=== PATIENT | female | born 1950 | race Caucasian/White ===

== ENCOUNTER 2019-03-02 09:38 | Outpatient (CLI) | payer MEDICARE, SELFPAY ==
--- NOTE | 2019-03-02 09:47 | USCV_ITS ---
Emilio Linette Age: 68 Gender: F : 1950 Exam Date: 03/02/2019 10:15 Ordering Phys: Maikel Yancey MD Technologist: YUMIKO BUSTAMANTE Exam Location: [facility] [place] Indication: PERIPHERAL EDEMA BP: 157 / 101 HR: 75 Rhythm: Sinus Technical Quality: Suboptimal MEASUREMENTS (Male / Female) Normal Values 2D ECHO LV Diastolic Diameter PLAX 3.5 cm 4.2 - 5.9 / 3.9 - 5.3 cm LV Systolic Diameter PLAX 2.3 cm IVS Diastolic Thickness 1.4 cm 0.6 - 1.0 / 0.6 - 0.9 cm IVS Systolic Thickness 1.8 cm LVPW Diastolic Thickness 1.2 cm 0.6 - 1.0 / 0.6 - 0.9 cm LVPW Systolic Thickness 1.6 cm LVOT Diameter 2.0 cm LV Ejection Fraction 2D Teich 65.2 % LV Ejection Fraction MOD 2C 81.6 % LV Ejection Fraction 2C AL 81.5 % LA Diameter 2.9 cm LA Width 3.4 cm LA Height 5.3 cm RA Width 2.9 cm RA Height 4.6 cm Aorta at Sinotubular Diameter 2.7 cm M-MODE LV Diastolic Diameter MM 4.4 cm 4.2 - 5.9 / 3.9 - 5.3 cm LV Systolic Diameter MM 2.4 cm LV Ejection Fraction MM Teich 78.1 % IVS Diastolic Thickness MM 1.0 cm 0.6 - 1.0 / 0.6 - 0.9 cm IVS Systolic Thickness MM 1.4 cm LVPW Diastolic Thickness MM 1.1 cm 0.6 - 1.0 / 0.6 - 0.9 cm LVPW Systolic Thickness MM 1.5 cm Aortic Annulus Diameter 2.7 cm LA Ao Ratio MM 1.1 MV E Point Septal Separation 0.2 cm DOPPLER AV Peak Velocity 147.0 cm/s LVOT Peak Velocity 85.0 cm/s AV Area Cont Eq vti 2.1 cm squared AV Area Cont Eq pk 1.9 cm squared MV Area PHT 2.9 cm squared Mitral E to A Ratio 0.7 MV E' Velocity 9.0 cm/s Mitral E to MV E' Ratio 11.3 Mitral E to LV E' Lateral Ratio 10.8 Mitral E to LV E' Septal Ratio 12.0 TR Peak Velocity 258.5 cm/s TR Peak Gradient 26.7 mmHg TR Mean Velocity 211.5 cm/s TR Mean Gradient 18.3 mmHg TR Velocity Time Integral 74.0 cm TV Peak E Velocity 47.0 cm/s Right Atrial Pressure 3.0 mmHg Pulmonary Artery Systolic Pressu 29.7 mmHg PV Peak Velocity 77.0 cm/s RV Acceleration Time 0.1 s RV Ejection Time 0.3 s RV AcT/ET 0.3 FINDINGS Left Ventricle Normal left ventricular size, systolic function and wall thickness, with no regional wall motion abnormalities. Grade I/IV diastolic dysfunction (abnormal relaxation filling pattern), normal to mildly elevated filling pressures. Left ventricular ejection fraction is estimated at 65 %. Right Ventricle Normal right ventricular size and systolic function. Normal right ventricular systolic pressure. Right Atrium The right atrium is normal in size. Left Atrium Mildly increased left atrial size. Mitral Valve Structurally normal mitral valve. Mild mitral annular calcification. Trace mitral valve regurgitation. No mitral valve stenosis. Aortic Valve Structurally normal aortic valve without significant sclerosis or stenosis. There is no aortic regurgitation. Tricuspid Valve Structurally normal tricuspid valve. Trace to mild tricuspid valve regurgitation. Pulmonic Valve Pulmonic valve not well visualized. Pericardium Normal pericardium without effusion. Aorta Normal ascending aorta dimension. CONCLUSIONS Normal left ventricular size, systolic function and wall thickness, with no regional wall motion abnormalities. Grade I/IV diastolic dysfunction (abnormal relaxation filling pattern), normal to mildly elevated filling pressures. Left ventricular ejection fraction is estimated at 65 %. Mildly increased left atrial size. Structurally normal mitral valve. Mild mitral annular calcification. Trace mitral valve regurgitation. No mitral valve stenosis. No change from 01/12/2018 Dr. Cesar Alvares MD (Electronically Signed) Final Date: 02 March 2019 17:06 S
== END 2019-03-02 09:39 | disposition home or self-care (01) ==
LOC: RAD 09:42
PROVIDERS: Family Provider Family Medicine; PCP Family Medicine; Visit Provider Family Medicine
DX: I08.1 Rheumatic disorders of both mitral and tricuspid valves (principal); R60.9 Edema, unspecified
CPT/HCPCS: 93306

== ENCOUNTER → 2019-04-13 09:02 | Outpatient (BNVA) | payer MEDICARE, SELFPAY | PROVIDERS: Family Provider Family Medicine; PCP Family Medicine; Visit Provider Nurse Practitioner Family | DX: N18.3 Chronic kidney disease, stage 3 (moderate) (principal) | CPT/HCPCS: 80069; 82044; 82306; 82310; 83970; 85025 ==

== ENCOUNTER 2020-01-27 09:03 | Outpatient (CLI) | payer MEDICARE, SELFPAY ==
--- NOTE | 2020-01-27 09:07 | MM_ITS ---
WS: [id number] Bilateral screening digital mammogram, 01/27/2020 Clinical Data: SCREENING Comparison: 01/24/2019, 01/21/2018, 01/20/2017, 01/18/2016, 01/16/2015, 01/11/2014, 01/10/2013, 12/11/2011 , 11/20/2010, 11/16/2009, 11/06/2008, 11/03/2007, 10/27/2006. Findings: The breast parenchymal pattern shows fat replacement. No spiculated masses or clustered calcification s are seen. There are no secondary signs of carcinoma. There is a mole marker on the right breast. MM/[id number] Impression: 1. Negative bilateral mammogram unchanged. 2. Recommend annual screening mammograms. BIRADS: 1-Negative FOLLOW UP: 1 Year Follow-up The CAD food checkers and cashiers supervisor was used.
== END 2020-01-27 09:04 | disposition home or self-care (01) ==
LOC: RADSHAW 09:05
PROVIDERS: PCP Family Medicine; Visit Provider Family Medicine
DX: Z12.31 Encounter for screening mammogram for malignant neoplasm of breast (principal)
CPT/HCPCS: 77067

== ENCOUNTER → 2020-04-19 09:47 | Outpatient (BNVA) | payer MEDICARE, SELFPAY | PROVIDERS: PCP Family Medicine; Visit Provider Internal Medicine Nephrology | DX: N18.30 Chronic kidney disease, stage 3 unspecified (principal) | CPT/HCPCS: 80069; 82043; 82310; 83970; 85025 ==

== ENCOUNTER 2020-09-19 09:31 | Outpatient (CLI) | payer MEDICARE, SELFPAY ==
[2020-09-19 09:56] VITALS: BP 126/77; PULSE 97; RESP 18; TEMP 36.8; O2SAT 92
[2020-09-19 10:34] VITALS: BP 96/60; PULSE 91; RESP 18; O2SAT 92
[2020-09-19 11:24] VITALS: BP 105/67; PULSE 87; RESP 18; TEMP 36.7; O2SAT 92
== END 2020-09-19 09:32 | disposition home or self-care (01) ==
LOC: OPS 09:34
PROVIDERS: PCP Family Medicine; Visit Provider Nurse Practitioner
DX: U07.1 COVID-19 (principal)
CPT/HCPCS: 96365

== ENCOUNTER 2020-09-24 12:07 | Inpatient (IN) | payer MEDICARE, SELFPAY ==
[2020-09-24] VITALS (8 sets, daily range): BP systolic 134–144; BP diastolic 82–85; PULSE 73–99; RESP 20–30; TEMP 36.7–36.9; O2SAT 88–94; BMI 23.9
--- NOTE | 2020-09-24 12:09 | W.ED.SOB ---
HPI - SOB/Dyspnea General: Chief Complaint: COVID symptoms Stated Complaint: COVID, DIFF BREATHING Time Seen by Provider: 09/24/20 12:08 History of Present Illness: HPI Narrative: Ms. Jhaveri is a 70-year-old lady with significant past medical history of hypertension, hyperlipidemia, diabetes who presents emergency department due to respiratory distress. The patient is known Covid positive with symptom onset approximately 2 weeks ago. 1 week ago she tested positive for Covid and subsequently received the monoclonal antibody therapy. Despite this her symptoms have persisted. She feels short of breath and generalized fatigue, she has had associated poor p.o. intake. Overall the course of symptoms has worsened. The intensity is moderate to severe. Upon initial EMS arrival she was noted to have oxygen saturations in the high 70s% with some improvement with supplemental oxygen and a nebulized albuterol treatment. The patient is not vaccinated for Covid and does have sick contacts. No other specific exacerbating relieving factors identified. Review of Systems General: Reports: 10 or more systems reviewed and unremarkable except in HPI and below Narrative: CONSTITUTIONAL: denies fever, positive for fatigue, weakness EYES - denies pain, denies loss of vision EARS - denies ear issues. NOSE - denies congestion or rhinorrhea. THROAT - denies sore throat or difficulty swallowing. CARDIOVASCULAR - denies chest pain and palpitations RESPIRATORY -positive for shortness of breath and cough GASTROINTESTINAL - denies abdominal pain, no nausea vomiting, loose stools. GENITOURINARY - denies dysuria or urinary frequency MUSCULOSKELETAL- denies deformity or pain SKIN - denies rashes or new changed skin lesions NEUROLOGIC - denies focal weakness or sensory changes HEMATOLOGIC/LYMPHATIC - denies easy bruising or lymphadenopathy. [facility] ED PFSH: Medical History Endometrial adenocarcinoma HLD (hyperlipidemia) Stage 3 chronic kidney disease Type 2 diabetes mellitus Well woman exam with routine gynecological exam Surgical History H/O section 1975, 1978 H/O lumpectomy 1994 2000 H/O: hysterectomy 08/27/17 due to cancer S/P cholecystectomy 1981 S/P tubal ligation 1978 Family History Mother Diabetes Hypertension Father Diabetes Heart block Hypertension Brother Diabetes Denies family history of Clotting disorder Anesthesia complication Bleeding disorder Stroke Social History Smoking and tobacco status: never smoked Alcohol intake: never Physical Exam Narrative: EXAM NARRATIVE: GENERAL/CONSTITUTIONAL - moderately ill-appearing. No acute distress. Eyes - PERRL, no conjunctival injection ENMT - Atraumatic external nose and ears. Dry mucous membranes NECK - supple. trachea midline CARDIOVASCULAR - regular rate and rhythm. Peripheral pulses 2+ and equal RESPIRATORY -mildly coarse breath sounds on the right, tachypnea present.. No retractions or accessory muscle use. ABDOMEN/GI - Nontender/Nondistended. No tenderness to percussion or evidence of peritonitis MSK - Extremities without obvious deformity or tenderness to palpation SKIN - Warm, Dry NEURO - alert and appropriately oriented. strength and sensation intact. Moves all extremities equally. PSYCH - Appropriate mood and affect Course ED course: - Patient was seen and evaluated by me at bedside - Patient placed on cardiac monitors, IV access obtained - Initial evaluation notable for somewhat ill appearance, no acute distress. Increased respiratory effort requiring supplemental oxygen. - Labs and imaging obtained and reviewed - Labs notable for no significant hematologic panel abnormality. ABG notable for compensated pH of 7.43 with PCO2 of 27.9 and PO2 of 55.3 despite being on supplemental oxygen. Metabolic panel consistent with dehydration, hyperkalemia is new to this patient. There are no significant T wave abnormalities or peaking noted on EKG however given that elevation of potassium shifting was ordered. - Imaging notable for bilateral opacities consistent with viral pneumonia. - Upon serial reexamination after treatment the patient was mildly improved with symptomatic cares though patient still remains ill - Based on patient history, evaluation, labs, and imaging as interpreted the most likely cause of the patient's condition is Covid pneumonia with associated hypoxemia, hyperkalemia, and metabolic derangements - The results of ED evaluation were discussed with the patient including plan for admission due to requirement for level of care not available if discharged to prevent significant worsening/deterioration. -Hospitalist service consulted and agreed to admit the patient. - Patient was admitted without further deterioration or significant events. Vital Signs: Vital signs: Vital Signs Temperature 98.3 F 09/26/20 11:54 Pulse Rate 76 09/26/20 11:54 Respiratory Rate 19 H 09/26/20 11:54 Blood Pressure 132/66 09/26/20 11:54 Pulse Oximetry 95 09/26/20 11:54 MDM - SOB/Dyspnea Medical Records: Attestation: I reviewed the patient's medical records. Lab Data: Attestation: I reviewed the patient's lab results. Labs: Lab Results 09/24/20 09/24/20 09/24/20 Range/Units 12:36 12:46 12:46 WBC 7.2 (4.0-10.0) 10^3/ uL RBC 4.39 (4.1-5.3) 10^6/u L Hgb 12.9 (11.5-15.3) g/dL Hct 38.7 (37.0-47.0) % MCV 88.2 (81-99) fl MCH 29.4 (28.0-34.0) pg MCHC 33.3 (30.0-36.0) g/dL RDW 13.1 (12.1-15.1) % Plt Count 283 (130-400) 10^3/c mm MPV 10.1 (7.4-10.4) fL Neut % (Auto) 76.0 % Lymph % (Auto) 11.0 % Banks % (Auto) 7.7 % Eos % (Auto) 0.4 % Baso % (Auto) 0.3 % Neut # (Auto) 5.45 (1.8-7.7) 10^3/u L Lymph # (Auto) 0.8 (0.8-4.8) 10^3/u L Banks # (Auto) 0.6 (0.2-0.9) 10^3/u L Eos # (Auto) 0.0 (0.0-0.8) 10^3/u L Baso # (Auto) 0.0 (0.0-0.1) 10^3/u L Nucleated RBC % (a uto) 0 % Nucleated RBCs # 0.0 /100WBC Specimen Type Sample Site ABG pH (7.35-7.45) ABG pCO2 (35-45) mmHg ABG pO2 (80.0-100.0) mmH g ABG HCO3 (22-26) mmol/L ABG O2 Saturation ABG Base Excess (-2.0-2.0) mmol/ L Mega Test A-a O2 Gradient (5-10) mmHg Hematocrit (37-47) % Hgb O2 Saturation (95-100) % Carboxyhemoglobin (0.4-20.1) %THgb Methemoglobin (0.4-1.5) % Total Hemoglobin (12-16) g/dL Ionized Calcium (1.1-1.4) mmol/L O2 Delivery Device O2 Liters/Min % FiO2 % Manufacturing Machine Operator ID Sodium 130 L (136-145) mmol/L Potassium 6.1 H (3.5-5.1) mmol/L Chloride 95 L (98-107) mmol/L Carbon Dioxide 21 L (22-29) mmol/L Anion Gap 20.1 H (5-19) BUN 39 H (8-23) mg/dL Creatinine 1.5 H (0.5-0.9) mg/dL GFR Calculation Not Reportable Glucose 121 H (65-115) mg/dL POC Glucose 117 H (70-110) mg/dL Calculated Osmolal ity 281 L (285-295) mOsm/k g Lactate (0.5-2.2) mmol/L Calcium 8.9 (8.5-10.5) mg/dL Total Bilirubin 0.6 (0.15-1.2) mg/dL AST 44 H (0-32) U/L ALT 44 H (0-33) U/L Alkaline Phosphata se 93 (35-105) IU/L Troponin T Baselin e (0-10) ng/L Troponin T 120 Min catarina (0-10) ng/L Delta Troponin T (0-10) ABS# C-Reactive Protein 174.8 H (0.0-4.9) mg/L Total Protein 6.8 (6.6-8.7) g/dL Albumin 3.5 (3.5-5.2) g/dL Globulin 3.3 (1.3-4.6) g/dL Procalcitonin 0.30 (0-0.5) ng/mL Urine Color (Yellow) Urine Appearance (CLEAR) Urine pH (5-7) Ur Specific Gravit y (1.005-1.030) Urine Protein (Negative) Urine Glucose (UA) (Normal) Urine Ketones (Negative) Urine Blood (Negative) Urine Nitrate (Negative) Urine Bilirubin (Negative) Urine Urobilinogen (Negative) mg/dL Ur Leukocyte Fouzia ase (Negative) 09/24/20 09/24/20 09/24/20 Range/Units 12:46 12:46 12:47 WBC (4.0-10.0) 10^3/ uL RBC (4.1-5.3) 10^6/u L Hgb (11.5-15.3) g/dL Hct (37.0-47.0) % MCV (81-99) fl MCH (28.0-34.0) pg MCHC (30.0-36.0) g/dL RDW (12.1-15.1) % Plt Count (130-400) 10^3/c mm MPV (7.4-10.4) fL Neut % (Auto) % Lymph % (Auto) % Banks % (Auto) % Eos % (Auto) % Baso % (Auto) % Neut # (Auto) (1.8-7.7) 10^3/u L Lymph # (Auto) (0.8-4.8) 10^3/u L Banks # (Auto) (0.2-0.9) 10^3/u L Eos # (Auto) (0.0-0.8) 10^3/u L Baso # (Auto) (0.0-0.1) 10^3/u L Nucleated RBC % (a uto) % Nucleated RBCs # /100WBC Specimen Type Sample Site ABG pH (7.35-7.45) ABG pCO2 (35-45) mmHg ABG pO2 (80.0-100.0) mmH g ABG HCO3 (22-26) mmol/L ABG O2 Saturation ABG Base Excess (-2.0-2.0) mmol/ L Mega Test A-a O2 Gradient (5-10) mmHg Hematocrit (37-47) % Hgb O2 Saturation (95-100) % Carboxyhemoglobin (0.4-20.1) %THgb Methemoglobin (0.4-1.5) % Total Hemoglobin (12-16) g/dL Ionized Calcium (1.1-1.4) mmol/L O2 Delivery Device O2 Liters/Min % FiO2 % Manufacturing Machine Operator ID Sodium (136-145) mmol/L Potassium (3.5-5.1) mmol/L Chloride (98-107) mmol/L Carbon Dioxide (22-29) mmol/L Anion Gap (5-19) BUN (8-23) mg/dL Creatinine (0.5-0.9) mg/dL GFR Calculation Glucose (65-115) mg/dL POC Glucose (70-110) mg/dL Calculated Osmolal ity (285-295) mOsm/k g Lactate 1.8 (0.5-2.2) mmol/L Calcium (8.5-10.5) mg/dL Total Bilirubin (0.15-1.2) mg/dL AST (0-32) U/L ALT (0-33) U/L Alkaline Phosphata se (35-105) IU/L Troponin T Baselin e 16 H (0-10) ng/L Troponin T 120 Min [place]ina (0-10) ng/L Delta Troponin T (0-10) ABS# C-Reactive Protein (0.0-4.9) mg/L Total Protein (6.6-8.7) g/dL Albumin (3.5-5.2) g/dL Globulin (1.3-4.6) g/dL Procalcitonin (0-0.5) ng/mL Urine Color Straw (Yellow) Urine Appearance Clear (CLEAR) Urine pH 5 (5-7) Ur Specific Gravit y 1.005 (1.005-1.030) Urine Protein Neg (Negative) Urine Glucose (UA) Norm (Normal) Urine Ketones Negative (Negative) Urine Blood Neg (Negative) Urine Nitrate Negative (Negative) Urine Bilirubin Neg (Negative) Urine Urobilinogen Norm (Negative) mg/dL Ur Leukocyte Fouzia ase Negative (Negative) 09/24/20 09/24/20 09/24/20 Range/Units 14:21 14:52 14:52 WBC (4.0-10.0) 10^3/ uL RBC (4.1-5.3) 10^6/u L Hgb (11.5-15.3) g/dL Hct (37.0-47.0) % MCV (81-99) fl MCH (28.0-34.0) pg MCHC (30.0-36.0) g/dL RDW (12.1-15.1) % Plt Count (130-400) 10^3/c mm MPV (7.4-10.4) fL Neut % (Auto) % Lymph % (Auto) % Banks % (Auto) % Eos % (Auto) % Baso % (Auto) % Neut # (Auto) (1.8-7.7) 10^3/u L Lymph # (Auto) (0.8-4.8) 10^3/u L Banks # (Auto) (0.2-0.9) 10^3/u L Eos # (Auto) (0.0-0.8) 10^3/u L Baso # (Auto) (0.0-0.1) 10^3/u L Nucleated RBC % (a uto) % Nucleated RBCs # /100WBC Specimen Type Arterial Sample Site Radial, left ABG pH 7.43 (7.35-7.45) ABG pCO2 27.9 L (35-45) mmHg ABG pO2 55.3 L (80.0-100.0) mmH g ABG HCO3 18.7 L (22-26) mmol/L ABG O2 Saturation 89.8 ABG Base Excess -4.5 L (-2.0-2.0) mmol/ L Mega Test Pos A-a O2 Gradient 28.9 H (5-10) mmHg Hematocrit 35.2 L (37-47) % Hgb O2 Saturation 88.0 L (95-100) % Carboxyhemoglobin 1.2 (0.4-20.1) %THgb Methemoglobin 0.9 (0.4-1.5) % Total Hemoglobin 11.5 L (12-16) g/dL Ionized Calcium 1.3 (1.1-1.4) mmol/L O2 Delivery Device Nc O2 Liters/Min 6.0 % FiO2 44.0 % Manufacturing Machine Operator ID Amh Sodium 127.0 L (136-145) mmol/L Potassium 5.0 (3.5-5.1) mmol/L Chloride (98-107) mmol/L Carbon Dioxide (22-29) mmol/L Anion Gap (5-19) BUN (8-23) mg/dL Creatinine (0.5-0.9) mg/dL GFR Calculation Glucose 299.0 H (65-115) mg/dL POC Glucose (70-110) mg/dL Calculated Osmolal ity (285-295) mOsm/k g Lactate (0.5-2.2) mmol/L Calcium (8.5-10.5) mg/dL Total Bilirubin (0.15-1.2) mg/dL AST (0-32) U/L ALT (0-33) U/L Alkaline Phosphata se (35-105) IU/L Troponin T Baselin e (0-10) ng/L Troponin T 120 Min [place] 14.32 H (0-10) ng/L Delta Troponin T -1.68 L (0-10) ABS# C-Reactive Protein (0.0-4.9) mg/L Total Protein (6.6-8.7) g/dL Albumin (3.5-5.2) g/dL Globulin (1.3-4.6) g/dL Procalcitonin 0.26 (0-0.5) ng/mL Urine Color (Yellow) Urine Appearance (CLEAR) Urine pH (5-7) Ur Specific Gravit y (1.005-1.030) Urine Protein (Negative) Urine Glucose (UA) (Normal) Urine Ketones (Negative) Urine Blood (Negative) Urine Nitrate (Negative) Urine Bilirubin (Negative) Urine Urobilinogen (Negative) mg/dL Ur Leukocyte Fouzia ase (Negative) EKG Data^: EKG 1: Attestation: I personally reviewed and interpreted this EKG as follows: EKG Interpretation Date: 09/24/20 EKG interpretation time: 12:45 Prior EKG tracings: not available for review Ischemic changes: non-specific ST-T wave changes Interpretation: Twelve-lead EKG shows regular sinus rhythm at a rate of 97. NV interval 137, QRS duration 89, QTc 393. Left axis deviation. Interpretation: Sinus rhythm. EKG 2: Attestation: I personally reviewed and interpreted this EKG as follows: EKG Interpretation Date: 09/24/20 EKG interpretation time: 14:50 Prior EKG tracings: available for review Interpretation: Twelve-lead EKG shows a regular sinus rhythm at a rate of 79. Normal NV interval 151, QRS duration 76, QTc 373. Interference of unclear etiology in lead V2 though no adjacent leads concerning for ST elevation. Interpretation: Sinus rhythm. Unable to assess lead V2. Discharge Plan Discharge Patient Disposition: Admitted As Inpatient Admit Provider: Joanne Tarango Coding Level of Care Code ED Communications Attendant for Toshia Lua
--- NOTE | 2020-09-24 12:22 | XRR_ITS ---
PROCEDURE INFORMATION: Exam: XR Chest Exam date and time: 09/24/2020 12:22 PM Age: 70 years old Clinical indication: Shortness of breath; Patient HX: History--covid +; Short of breath-difficulty breathing; Additional info: SOB TECHNIQUE: Imaging protocol: XR of the chest. Views: 1 view. COMPARISON: CT Chest/Abdomen/Pelvis w IV* 01/11/2018 8:29 PM FINDINGS: Lungs: Bilateral interstitial/airspace disease in the settting of Covid pneumonitis. Pleural spaces: No pleural effusion. Heart/Mediastinum: No cardiomegaly. Bones/joints: Degenerative change. XR/XR chest 1V portable [id number] IMPRESSION: Bilateral interstitial/airspace disease in the settting of Covid pneumonitis.
--- NOTE | 2020-09-24 12:23 | ECG_ITS ---
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 Measurements Intervals [place] Rate: 97 P: 11 NE: 137 QRS: -18 QRSD: 89 T: 73 QT: 309 QTc: 393 Interpretive Statements SINUS RHYTHM Compared to ECG 01/12/2018 01:48:48 T-wave abnormality no longer present Electronically Signed On 09-24-2020 23:58:04 CDT by Anthony Villeda M.D. [email or web address] [email or web address] hospitalJNJ Mobilethe university of toledo medical centerVision [employer] (V3D)/store/OM/[id number]
[2020-09-24] MEDS: acetaminophen 325 mg Tablet 650 MG PO (12:40)
[2020-09-24] MEDS: sodium chloride 0.9% 500 ML IV (12:42)
[2020-09-24 12:54] LABS: Glucose Point of Care 117 mg/dL (70-110)
[2020-09-24 12:56] LABS: Add Urine Microscopic? NO; Charge for UA Resulting for Rev
[2020-09-24 12:58] LABS: Basophils % 0.3 %; Eosinophils % 0.4 %; Hematocrit 38.7 % (37.0-47.0); Hemoglobin 12.9 g/dL (11.5-15.3); Lymphocytes # 0.8 10^3/uL (0.8-4.8); Mean Corpuscular HGB Conc 33.3 g/dL (30.0-36.0); Mean Corpuscular Hemoglobin 29.4 pg (28.0-34.0); Mean Corpuscular Volume 88.2 fl (81-99); Mean Platelet Volume 10.1 fL (7.4-10.4); Monocytes # 0.6 10^3/uL (0.2-0.9); Monocytes % 7.7 %; Neutrophils # 5.45 10^3/uL (1.8-7.7); Nucleated Red Blood Cells % 0 %; Platelet Count 283 10^3/cmm (130-400); Red Blood Count 4.39 10^6/uL (4.1-5.3); Red Cell Distribution Width 13.1 % (12.1-15.1); White Blood Count 7.2 10^3/uL (4.0-10.0)
[2020-09-24 13:02] LABS: Bilirubin Urine Neg (Negative); Blood Urine Neg (Negative); Glucose Urine UA Norm (Normal); Ketones Urine Negative (Negative); Leukocyte Esterase Urine Negative (Negative); Nitrate Urine Negative (Negative); Protein Urine Neg (Negative); Specific Gravity, Urine 1.005 (1.005-1.030); Urine Appearance Clear (CLEAR); Urine Color Straw (Yellow); Urobilinogen Urine Norm (Negative); pH Urine 5 (5-7)
[2020-09-24 13:17] LABS: Alanine Aminotransferase 44 U/L (0-33); Albumin Level 3.5 g/dL (3.5-5.2); Alkaline Phosphatase 93 IU/L (35-105); Anion Gap 20.1 (5-19); Aspartate Amino Transferase 44 U/L (0-32); Blood Urea Nitrogen 39 mg/dL (8-23); C Reactive Protein 174.8 mg/L (0.0-4.9); Calcium 8.9 mg/dL (8.5-10.5); Carbon Dioxide 21 mmol/L (22-29); Chloride 95 mmol/L (98-107); Globulin 3.3 g/dL (1.3-4.6); Glucose 121 mg/dL (65-115); Osmolality Calculated 281 mOsm/kg (285-295); Potassium 6.1 mmol/L (3.5-5.1); Sodium 130 mmol/L (136-145); Total Bilirubin 0.6 mg/dL (0.15-1.2); Total Protein 6.8 g/dL (6.6-8.7)
[2020-09-24 13:18] LABS: Lactate (Lactic Acid level) 1.8 mmol/L (0.5-2.2)
[2020-09-24 13:21] LABS: Troponin(5th) Baseline 16 ng/L (0-10)
[2020-09-24] MEDS: dextrose 50% syringe 50 mL IVP (14:04)
[2020-09-24] MEDS: insulin regular-human 100 units/1 mL 10 UNIT IVP (14:08)
[2020-09-24] MEDS: calcium gluconate 0.1 gm/mL 10% SDV 10mL 1 GM IVP (14:11)
[2020-09-24] MEDS: sodium chloride 0.9% (100 ml) 100 ML 10 ML (14:18)
--- NOTE | 2020-09-24 14:23 | ECG_ITS ---
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 Measurements Intervals [place] Rate: 79 P: 21 HI: 151 QRS: -11 QRSD: 76 T: 79 QT: 325 QTc: 373 Interpretive Statements SINUS RHYTHM Compared to ECG 09/24/2020 12:42:03 No significant changes Electronically Signed On 09-25-2020 0:09:35 CDT by Anthony Villeda M.D. [email or web address].[facility].[employer]/store/[id number]
[2020-09-24 14:32] LABS: ABG PCO2 27.9 mmHg (35-45); ABG PH Result 7.43 (7.35-7.45); Alveolar-Arterial Oxygen Gradi 28.9 mmHg (5-10); Arterial Blood Gas Hematocrit 35.2 % (37-47); Base Excess ABG -4.5 mmol/L (-2.0-2.0); Blood Gas Allen Test Pos; Blood Gas Operator Identificat AMH; Blood Gas Sample Site Radial, left; Blood Gas Sample Type Arterial; Carboxyhemoglobin 1.2 %THgb (0.4-20.1); HCO3 ABG 18.7 mmol/L (22-26); Ionized Calcium Level - ABG 1.3 mmol/L (1.1-1.4); Methemoglobin 0.9 % (0.4-1.5); Oxygen Device NC; Oxygen Saturation ABG 89.8; PO2 ABG 55.3 mmHg (80.0-100.0); Total Hemoglobin 11.5 g/dL (12-16)
[2020-09-24 15:22] LABS: Troponin 5 2HR 14.32 ng/L (0-10)
[2020-09-24 15:23] LABS: Troponin 5 2HR Delta -1.68 ABS# (0-10)
--- NOTE | 2020-09-24 16:34 | PM.HP ---
Providers/Chief Complaint Admitting Physician: Joanne Tarango MD Primary Care Provider: Maikel Yancey MD Chief Complaint: COVID, DIFF BREATHING History of Present Illness Linette Jhaveri is a 70 year old female who presented with complaint of shortness of breath. Her symptoms roughly started 2 weeks ago. she tested positive with covid 1 wk ago. She received monoclonal antibody and unfortunately her symptoms got worse. Her symptoms were associated with fatigue, lethargy and poor PO intake. In the ER she was desaturating in 70s, which improved on 6L NC however due to worsening hypoxia she was switched to HHF. She was treated for hyperkalemia, ekg without significant changes, CXR has typical viral infection related findings Review of Systems Const: Reports: chills, body aches, change in appetite and change in weight Eyes: Denies: change in vision ENMT: Reports: dry mouth; Denies: throat pain Card: Reports: palpitations Resp: Reports: dyspnea GI: Reports: nausea and vomiting : Reports: flank pain Musc: Reports: neck pain Skin/Breast: Denies: rash Neuro: Reports: headache(s) Psych: Reports: anxiety Endo: Reports: polyuria Man/Lymph: Reports: easy bruising All/Imm: Reports: urticaria Medications/Allergies Home Medications Medication Instructions Recorded Confirmed Last Taken Type amlodipine 5 mg tablet 5 mg PO DAILY 09/20/19 09/24/20 09/24/20 History gabapentin 600 mg tablet 600 mg PO TID 09/20/19 09/24/20 09/24/20 History lisinopril 10 mg tablet 10 mg PO BID 09/20/19 09/24/20 09/24/20 History lovastatin 10 mg tablet 10 mg PO DAILY 09/20/19 09/24/20 09/24/20 History magnesium 250 mg tablet 250 mg PO DAILY 09/20/19 09/24/20 09/24/20 History metformin 500 mg tablet 500 mg PO BID 09/20/19 09/24/20 09/24/20 History metoprolol tartrate 25 mg tablet 25 mg PO BID 09/20/19 09/24/20 09/24/20 History omeprazole 20 mg capsule,delayed 20 mg PO DAILY 09/20/19 09/24/20 09/24/20 History release aspirin [Aspir-81] 81 mg PO DAILY 09/24/20 09/24/20 09/24/20 History Allergies Allergy/AdvReac Type Severity Reaction Status Date / Time No Known Allergies Allergy Verified 09/20/19 09:50 PFSH Acute PFSH: Medical History Endometrial adenocarcinoma HLD (hyperlipidemia) Stage 3 chronic kidney disease Type 2 diabetes mellitus Well woman exam with routine gynecological exam Surgical History H/O section 1975, 1978 H/O lumpectomy 1994 2000 H/O: hysterectomy 08/27/17 due to cancer S/P cholecystectomy 1981 S/P tubal ligation 1978 Family History Mother Diabetes Hypertension Father Diabetes Heart block Hypertension Brother Diabetes Denies family history of Clotting disorder Anesthesia complication Bleeding disorder Stroke Social History Smoking and tobacco status: never smoked Alcohol intake: never Vitals/I&O/Wt Last Vital Signs Temp 98.4 F 09/24/20 12:17 Pulse 82 09/24/20 13:19 Resp 20 H 09/24/20 14:35 BP 140/85 09/24/20 12:17 Pulse Ox 93 09/24/20 14:35 Weight last 48 hrs Weight 61.235 kg Physical Exam Narrative: EXAM NARRATIVE: female who appears stated age on HHF saturating well clinically dehydrated S1,S2 NSR Abd soft, no signs of peritonitis no neurological defecit eomi perrla decreased breath sounds b/L no active wheezing however ronchi no ulcer no signs of cellulitis dry mucous membranes Data : 09/24/20 12:46 09/24/20 12:46 A&P Assessment and plan (1) Hypoxia: Status: Acute (2) COVID-19: Status: Acute (3) Dehydration: Status: Acute (4) BALJIT (acute kidney injury): Status: Acute (5) Hyperkalemia: Status: Acute Additional A&P Information acute hypoxia related to covid 19 s/p monoclonal ab infusion currently on HHF check crp, procalcitonin, start remdesevir, decadron, Baljit related to dehydration she has CKD3 baseline cr around 1.5, hyperkalemia rx in the ER w Ca gluconate and insulin add keyexalate poor Po intake related to viremia supportive treatment for now, wont add appetite stimulant at this time HTN hx: monitor on home meds , continue lisinopril amlodipine and BB full code renal diet dvt ppx: Heparin Attestations Medical Necessity Statement*: needs more than 2 midnights Time Spent in Patient Care: 16 - 35 minutes Coding Level of Care Code Acute Alum Plant Supervisor for Benoitg Stoney Diagnoses Hypoxia R09.02 COVID-19 U07.1 Dehydration E86.0 BALJIT (acute kidney injury) N17.9 Hyperkalemia E87.5
[2020-09-24 17:57] LABS: Procalcitonin 0.26 ng/mL (0-0.5)
[2020-09-24] MEDS: sodium chloride 0.9% 1,000 ML 75 ML IV (19:02)
[2020-09-24] MEDS: heparin 5,000 unit/mL INJ 1 mL 5000 UNIT SUBCUT (19:02)
[2020-09-24] MEDS: metoprolol tartrate 25 mg Tablet PO (19:05)
[2020-09-24] MEDS: sodium polystyrene sulfonate 15 gm/60 mL Btl PO (19:05)
[2020-09-24 19:45] LABS: Troponin 5 6HR 14.97 ng/L (0-10)
[2020-09-24 19:56] LABS: Troponin 5 6HR Delta -1.03 ng/L (0-12)
[2020-09-24] MEDS: remdesivir 200 MG in sodium chloride 0.9% (100 ml) 100 ML 100 MG IV (19:56)
[2020-09-24 21:17] LABS: Glucose Point of Care 139 mg/dL (70-110)
[2020-09-24] MEDS: acetaminophen 500 mg Tablet PO (21:57)
[2020-09-25] VITALS (11 sets, daily range): BP systolic 116–150; BP diastolic 74–90; PULSE 78–106; RESP 18–22; TEMP 36.2–37.1; O2SAT 90–97
[2020-09-25] MEDS: heparin 5,000 unit/mL INJ 1 mL 5000 UNIT SUBCUT ×3 (01:33→18:06)
[2020-09-25 05:09] LABS: ABG PCO2 29.5 mmHg (35-45); ABG PH Result 7.45 (7.35-7.45); Arterial Blood Gas Hematocrit 36.5 % (37-47); Base Excess ABG -2.9 mmol/L (-2.0-2.0); Blood Gas Allen Test Pos; Blood Gas Sample Type Arterial; HCO3 ABG 20.2 mmol/L (22-26); PO2 ABG 69.2 mmHg (80.0-100.0)
[2020-09-25 05:12] LABS: Oxygen Device HAG
[2020-09-25] MEDS: sodium chloride 0.9% 1,000 ML 75 ML IV (05:49)
[2020-09-25 06:03] LABS: Basophils % 0.2 %; Eosinophils # 0.1 10^3/uL (0.0-0.8); Eosinophils % 1.1 %; Hematocrit 32.4 % (37.0-47.0); Hemoglobin 10.8 g/dL (11.5-15.3); Lymphocytes # 0.4 10^3/uL (0.8-4.8); Lymphocytes % 6.3 %; Mean Corpuscular HGB Conc 33.3 g/dL (30.0-36.0); Mean Corpuscular Hemoglobin 29.3 pg (28.0-34.0); Mean Corpuscular Volume 87.8 fl (81-99); Mean Platelet Volume 9.4 fL (7.4-10.4); Monocytes # 0.3 10^3/uL (0.2-0.9); Monocytes % 5.3 %; Neutrophils % 83.6 %; Nucleated Red Blood Cells % 0 %; Platelet Count 265 10^3/cmm (130-400); Red Blood Count 3.69 10^6/uL (4.1-5.3); Red Cell Distribution Width 13.1 % (12.1-15.1); White Blood Count 6.2 10^3/uL (4.0-10.0)
[2020-09-25 06:33] LABS: Blood Urea Nitrogen 31 mg/dL (8-23); C Reactive Protein 158.5 mg/L (0.0-4.9); Calcium 8.7 mg/dL (8.5-10.5); Carbon Dioxide 20 mmol/L (22-29); Chloride 101 mmol/L (98-107); Glucose 140 mg/dL (65-115); Osmolality Calculated 285 mOsm/kg (285-295); Sodium 133 mmol/L (136-145)
[2020-09-25 07:52] LABS: Glucose Point of Care 160 mg/dL (70-110)
[2020-09-25] MEDS: dexamethasone 4 mg Tablet 6 MG PO (08:18)
[2020-09-25] MEDS: metoprolol tartrate 25 mg Tablet PO ×2 (08:19→18:06)
[2020-09-25] MEDS: aspirin 81 mg EC Tablet PO (08:19)
[2020-09-25] MEDS: pantoprazole DR 40 mg Tablet PO (08:19)
[2020-09-25] MEDS: amlodipine 5 mg Tablet PO (08:19)
--- NOTE | 2020-09-25 09:25 | PC.CHAP ---
Pastoral Care Encounter/Spiritual Assessment Type of Contact [] Declined contract attorney visit [] Patient/Family/Request visit [] Outpatient visit [] Follow-up visit [] Physician referral [] Code/Alert [x] Routine visit [] Staff referral [] Actively dying [] Patient sleeping [] Family support [] [] Out of room [] Palliative care [] [] Receiving care in room [] Pre-surgical visit [] Trauma [] Long length of stay [] ICU visit [x] Other: 2a Relational/Emotional Strength [] Patient feels connected with others/family/visitors/staff [] Distress [] Loneliness/isolation [] Abandonment Spirituality of Patient [] Person of Anne [] Attends Cheondoism of their Anne [] Believes in Prayer [] Reads Bible or Presybeterian materials [] There are Spiritual issues to be addressed Radiological Technologist Interventions [x] Prayer [] Active listening [] Non-anxious presence [] Spiritual/emotional support [] Crisis/trauma care [] Spiritual counseling [] Bereavement support [] Provided bereavement packet [] Provided Bible/devotional materials [] Provided toy/stuffed animal, coloring book to patient or family member [] Provided Communion [] Anointing/[place] [] Salvation [x] Completed spiritual assessment [] Other: Impact on Illness or Injury [] Angry [] Fearful [] Anxious [] Often cries [] Exhaustion [] Unable to work [] Unable to attend nondenominational [] Unable to walk/stand [] Unable to read [] Unable to drive [] Unable to eat/drink [] Unable to sleep [] Unable to be with family [] Patient intubated [] Other: Summary Time spent with patient
[2020-09-25 10:58] LABS: Glucose Point of Care 140 mg/dL (70-110)
--- NOTE | 2020-09-25 12:11 | P.PN_ITS ---
Subjective Subjective: Interval history: Patient was seen and examined this morning along with respite therapist Janae, she is requiring 70% heated high flow along 45 L Oxygen requirement has been increasing since admission CRP 158 Potassium improved Creatinine improving as well Patient is tachypneic seems very lethargic and fatigued Endorsing anorexia Looks very anxious as well Complaining of loose stool Vitals/I&O/Wt Last Vital Signs Temp 98.4 F 09/25/20 08:00 Pulse 99 09/25/20 11:39 Resp 20 H 09/25/20 11:39 BP 148/82 09/25/20 08:00 Pulse Ox 92 09/25/20 11:39 09/24/20 09/25/20 09/25/20 22:59 06:59 14:59 Intake Total 700 / 700 808.75 / 1508.75 120 / 120 Output Total 200 / 200 850 / 1050 Balance 500 / 500 -41.25 / 458.75 120 / 120 Weight last 48 hrs Weight 77.139 kg Weight 61.235 kg Physical Exam Narrative: EXAM NARRATIVE: Patient was sitting in her bed with breakfast tray in front of her Tachypnea and 20s Saturating 90 to 91% on 70% heated high flow 45 L S1, S2 sinus tachycardia Abdomen soft nontender no signs of peritonitis No lower extremity edema Awake alert oriented x3 looks extremely tired and fatigued She was able to get up and use bedside commode Data : 09/25/20 05:36 09/25/20 05:36 A&P Assessment and plan (1) Hyperkalemia: Status: Acute (2) BALJIT (acute kidney injury): Status: Acute (3) Dehydration: Status: Acute (4) COVID-19: Status: Acute (5) Hypoxia: Status: Acute Additional A&P Information Acute hypoxic respiratory failure related to COVID-19 Patient is not vaccinated Currently oxygen requirement is 70% heated high flow 45 L Tachypnea and 20s Sinus tachycardia Complaining of loose stools Anorexia fatigue and lethargy Would add Actemra first dose today her CRP is greater than 75, oxygen requirement has been going up, No signs of bacterial infection procalcitonin unremarkable, Continue remdesivir and Decadron Dehydration I will discontinue her normal saline today sodium has improved 133 she is able to tolerate p.o. diet BALJIT secondary to dehydration with underlying chronic kidney disease Her baseline creatinine seems to be around 1.3-1.5, today creatinine is 1.3 after normal saline maintenance overnight No signs of UTI Hyperkalemia: Improved after treatment with calcium gluconate, insulin and Kayexalate Anorexia secondary to viremia Consider mirtazapine if she is not able to increase her p.o. intake in next 48 hours Essential hypertension: I would hold lisinopril continue amlodipine and beta-feroz Full code DVT prophylaxis Heparin Cardiac diet Respiratory therapist updated Attestations Medical Necessity Statement*: Continue management on heated high flow for COVID-19 worsening symptoms Time Spent in Patient Care: 16 - 35 minutes Coding Level of Care Code Acute Director Statistical Programming for [facility] Fwd Diagnoses Hyperkalemia E87.5 BALJIT (acute kidney injury) N17.9 Dehydration E86.0 COVID-19 U07.1 Hypoxia R09.02
[2020-09-25 12:55] LABS: D Dimer 1.44 ug/mIFEU (0-0.59)
--- NOTE | 2020-09-25 13:38 | USR_ITS ---
PROCEDURE INFORMATION: Exam: US Duplex Lower Extremity Veins, Bilateral Exam date and time: 09/25/2020 1:38 PM Age: 70 years old Clinical indication: Swelling (edema) of limb; Lower extremity, bilateral; Additional info: Dvt TECHNIQUE: Imaging protocol: Real-time duplex ultrasound of the extremities with 2-D zavala scale, color Doppler flow and spectral waveform analysis with image documentation. Complete exam focused on the bilateral lower extremity veins. COMPARISON: US pelvic with transvaginal 06/24/2017 10:40 AM FINDINGS: Right deep veins: Unremarkable. The common femoral, femoral, proximal profunda femoral, popliteal, posterior tibial and peroneal veins are patent without thrombus. Normal Doppler waveforms. Normal compressibility and/or augmentation response. Right superficial veins: Saphenofemoral junction is patent without thrombus. Left deep veins: Unremarkable. The common femoral, femoral, proximal profunda femoral, popliteal, posterior tibial and peroneal veins are patent without thrombus. Normal Doppler waveforms. Normal compressibility and/or augmentation response. Left superficial veins: Saphenofemoral junction is patent without thrombus. Soft tissues: Unremarkable. US/CV venous duplex [facility] [id number] IMPRESSION: No sonographic evidence of deep vein thrombosis.
[2020-09-25] MEDS: acetaminophen 500 mg Tablet PO (14:13)
[2020-09-25] MEDS: fixodent 39 gm Tube 1 APPLIC DENTAL (14:14)
[2020-09-25 16:59] LABS: Glucose Point of Care 220 mg/dL (70-110)
--- NOTE | 2020-09-25 17:49 | PC.RESP ---
RT Shift Note Frequent safety and respiratory rounds continue. Orders completed as indicated. Patient monitored pre and post treatments throughout shift. Patient tolerated treatments appropriately. Condition did not change. Patient and/or claims customer service representative educated on respiratory treatment and medications. Patient and/or claims customer service representative verbalized understanding. Will continue to monitor patient progress.
[2020-09-25] MEDS: remdesivir 100 MG in sodium chloride 0.9% (100 ml) 100 ML IV (18:07)
[2020-09-25] MEDS: ipratropium-albuterol 3 mL Neb INHALATION (20:35)
[2020-09-25 20:57] LABS: Glucose Point of Care 168 mg/dL (70-110)
--- NOTE | 2020-09-25 23:27 | PC.RESP ---
RT Shift Note Frequent safety and respiratory rounds continue. Orders completed as indicated. Patient monitored pre and post treatments throughout shift. Patient [Did.] tolerate treatments appropriately. Condition [Improved.]. Patient and/or marketing development representative educated on respiratory treatment and medications. Patient and/or marketing development representative [ResponseToTeaching]. Will continue to monitor patient progress.
[2020-09-26] VITALS (11 sets, daily range): BP systolic 126–144; BP diastolic 66–88; PULSE 62–91; RESP 16–24; TEMP 36.3–36.9; O2SAT 91–95
[2020-09-26] MEDS: heparin 5,000 unit/mL INJ 1 mL 5000 UNIT SUBCUT ×3 (00:58→17:24)
[2020-09-26 05:12] LABS: Basophils % 0.1 %; Eosinophils % 0.1 %; Hematocrit 35.2 % (37.0-47.0); Hemoglobin 11.7 g/dL (11.5-15.3); Lymphocytes # 0.6 10^3/uL (0.8-4.8); Lymphocytes % 6.9 %; Mean Corpuscular HGB Conc 33.2 g/dL (30.0-36.0); Mean Corpuscular Hemoglobin 29.7 pg (28.0-34.0); Mean Corpuscular Volume 89.3 fl (81-99); Mean Platelet Volume 9.5 fL (7.4-10.4); Monocytes # 0.3 10^3/uL (0.2-0.9); Neutrophils # 7.11 10^3/uL (1.8-7.7); Neutrophils % 84.4 %; Nucleated Red Blood Cells % 0 %; Platelet Count 367 10^3/cmm (130-400); Red Blood Count 3.94 10^6/uL (4.1-5.3); Red Cell Distribution Width 12.8 % (12.1-15.1); White Blood Count 8.4 10^3/uL (4.0-10.0)
[2020-09-26 05:36] LABS: Glucose Point of Care 131 mg/dL (70-110)
[2020-09-26 05:36] LABS: Blood Urea Nitrogen 26 mg/dL (8-23); C Reactive Protein 180.4 mg/L (0.0-4.9); Calcium 9.3 mg/dL (8.5-10.5); Carbon Dioxide 21 mmol/L (22-29); Chloride 100 mmol/L (98-107); Glucose 139 mg/dL (65-115); Osmolality Calculated 283 mOsm/kg (285-295); Sodium 133 mmol/L (136-145)
[2020-09-26 08:09] LABS: Glucose Point of Care 136 mg/dL (70-110)
[2020-09-26] MEDS: metoprolol tartrate 25 mg Tablet PO ×2 (09:16→17:24)
[2020-09-26] MEDS: aspirin 81 mg EC Tablet PO (09:16)
[2020-09-26] MEDS: pantoprazole DR 40 mg Tablet PO (09:17)
[2020-09-26] MEDS: amlodipine 5 mg Tablet PO (09:17)
[2020-09-26] MEDS: dexamethasone 4 mg Tablet 6 MG PO (09:17)
[2020-09-26] MEDS: lanolin oint 7 gm 1 APPLIC TOPICAL (10:32)
[2020-09-26 11:44] LABS: Glucose Point of Care 139 mg/dL (70-110)
--- NOTE | 2020-09-26 12:36 | CT_ITS ---
WS: [id number] CT CHEST ANGIOGRAPHY WITH REFORMATS HISTORY: PE, hypoxia TECHNIQUE: Contiguous axial images are obtained through the chest during arterial injection of intrav enous contrast. Images are reconstructed to evaluate the pulmonary arteries. MIP imaging also reviewe d. All CT scans at [facility] use at least one of these dose optimization techniques: aut omated exposure control; mA and/or kV adjustment per patient size (includes targeted exams where dose is matched to clinical indication); or iterative reconstruction. CONTRAST: Visipaque 320; 70 mL IV. DLP: 571.44 mGy.cm COMPARISON: 01/11/2018 Good opacification of the pulmonary arteries. Contrast opacification becomes limited beyond the segme ntal branches due to significant airspace disease. No central pulmonary embolism. Pulmonary artery si ze is equal to the aorta. Mild atherosclerosis aorta. No adenopathy. Moderate bilateral and multi lob ar opacifications consistent with history of Covid. Opacifications are more dense than groundglass. N ormal size heart. No pericardial or pleural effusions. Atherosclerosis continues into the suprarenal aorta. Visualized upper abdominal structures are negati ve. Thoracolumbar scoliosis. CT/CT angio chest PE protcl [id number] IMPRESSION: 1. No central pulmonary embolism. Opacification becomes limited beyond the seg mental branches due to dense pulmonary consolidations. 2. Multilobar consolidations consistent with Covid 19.
--- NOTE | 2020-09-26 12:36 | P.PN_ITS ---
Subjective Subjective: Interval history: Patient was seen and examined in Covid unit. Patient is endorsing improvement in her energy finished her meals no recent diarrhea no dysuria No fever overnight Oxygen requirement has gone down to 40 L 50% heated high flow Encourage patient for ambulation, proning, incentive spirometry No DVT Creatinine improving Positive net fluid balance Vitals/I&O/Wt Last Vital Signs Temp 98.3 F 09/26/20 11:54 Pulse 76 09/26/20 11:54 Resp 19 H 09/26/20 11:54 BP 132/66 09/26/20 11:54 Pulse Ox 95 09/26/20 11:54 09/25/20 09/26/20 09/26/20 22:59 06:59 14:59 Intake Total 100 / 1253.75 60 / 1313.75 360 / 360 Output Total 550 / 550 100 / 650 Balance -450 / 703.75 -40 / 663.75 360 / 360 Weight last 48 hrs Weight 77.139 kg Physical Exam Narrative: EXAM NARRATIVE: Very pleasant elderly female Endorsing improvement in her energy No neurological deficit EOMI, PERRLA No signs of dehydration S1, S2 Crepitation noted in inspiratory and expiratory phases Abdomen soft Central obesity No joint swelling Lower extremity no edema Data : 09/26/20 04:45 09/26/20 04:45 A&P Assessment and plan (1) Hypoxia: Status: Acute (2) COVID-19: Status: Acute (3) Dehydration: Status: Acute (4) BALJIT (acute kidney injury): Status: Acute (5) Hyperkalemia: Status: Acute Additional A&P Information Acute hypoxia related to COVID-19 pneumonia Afebrile Procalcitonin unremarkable O2 requirement today 40 L 50% which has decreased from 70% 45 L yesterday Updated family Patient endorsing improvement in her energy and able to eat her meals now Continue remdesivir and Decadron Status post Actemra 09/25 Monitor inflammatory markers every 48 hours BALJIT on chronic kidney disease Baseline creatinine seems to be around 1.3- 1.5, today creatinine 1.2 secondary to dehydration: In positive net balance, creatinine improving Hyperkalemia improved as well I do believe her urine output has not been calculated appropriately Monitor creatinine with urine output Fluids discontinued, encouraged p.o. 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
[2020-09-26] MEDS: iodixanol 320 mg/mL 100mL Btl IV (15:32)
[2020-09-26 16:32] LABS: Glucose Point of Care 202 mg/dL (70-110)
[2020-09-26] MEDS: remdesivir 100 MG in sodium chloride 0.9% (100 ml) 100 ML IV (17:24)
--- NOTE | 2020-09-26 17:52 | PC.RESP ---
RT Shift Note Frequent safety and respiratory rounds continue. Orders completed as indicated. Patient monitored pre and post treatments throughout shift. Patient tolerated treatments appropriately. Condition did not change. Patient and/or tour sales representative educated on respiratory treatment and medications. Patient and/or tour sales representative verbalized understanding. Will continue to monitor patient progress.
[2020-09-26 20:24] LABS: Glucose Point of Care 165 mg/dL (70-110)
[2020-09-27] VITALS (11 sets, daily range): BP systolic 125–148; BP diastolic 83–92; PULSE 69–94; RESP 16–22; TEMP 36.4–36.8; O2SAT 91–97
[2020-09-27] MEDS: heparin 5,000 unit/mL INJ 1 mL 5000 UNIT SUBCUT ×3 (01:21→18:48)
[2020-09-27 05:14] LABS: Basophils % 0.1 %; Eosinophils % 0.1 %; Hematocrit 35.2 % (37.0-47.0); Hemoglobin 11.6 g/dL (11.5-15.3); Lymphocytes # 0.4 10^3/uL (0.8-4.8); Lymphocytes % 5.7 %; Mean Corpuscular Hemoglobin 29.1 pg (28.0-34.0); Mean Corpuscular Volume 88.4 fl (81-99); Mean Platelet Volume 9.1 fL (7.4-10.4); Monocytes # 0.3 10^3/uL (0.2-0.9); Monocytes % 4.2 %; Neutrophils # 6.44 10^3/uL (1.8-7.7); Neutrophils % 86.9 %; Nucleated Red Blood Cells % 0 %; Platelet Count 442 10^3/cmm (130-400); Red Blood Count 3.98 10^6/uL (4.1-5.3); Red Cell Distribution Width 12.8 % (12.1-15.1); White Blood Count 7.4 10^3/uL (4.0-10.0)
[2020-09-27 05:33] LABS: Blood Urea Nitrogen 32 mg/dL (8-23); C Reactive Protein 75.2 mg/L (0.0-4.9); Calcium 9.4 mg/dL (8.5-10.5); Carbon Dioxide 22 mmol/L (22-29); Chloride 98 mmol/L (98-107); Glucose 128 mg/dL (65-115); Osmolality Calculated 279 mOsm/kg (285-295); Sodium 130 mmol/L (136-145)
[2020-09-27 05:37] LABS: Creatinine Clr Calc Pharmacy 39.0346
[2020-09-27 05:56] LABS: D Dimer 1.37 ug/mIFEU (0-0.59)
[2020-09-27 07:08] LABS: Glucose Point of Care 115 mg/dL (70-110)
[2020-09-27] MEDS: dexamethasone 4 mg Tablet 6 MG PO (08:38)
[2020-09-27] MEDS: aspirin 81 mg EC Tablet PO (08:38)
[2020-09-27] MEDS: amlodipine 5 mg Tablet PO (08:38)
[2020-09-27] MEDS: metoprolol tartrate 25 mg Tablet PO ×2 (08:38→18:48)
[2020-09-27] MEDS: pantoprazole DR 40 mg Tablet PO (08:39)
[2020-09-27 12:21] LABS: Glucose Point of Care 143 mg/dL (70-110)
--- NOTE | 2020-09-27 14:29 | P.PN_ITS ---
Subjective Subjective: Interval history: Patient was seen this morning, she sitting up to the side of the bed, working with physical therapy, practicing her incentive spirometer, no fevers overnight, no shortness of breath with exertion, overall she is feeling better still on heated high flow Vitals/I&O/Wt Last Vital Signs Temp 97.6 F 09/27/20 12:00 Pulse 86 09/27/20 12:00 Resp 19 H 09/27/20 12:00 BP 134/84 09/27/20 12:00 Pulse Ox 91 09/27/20 12:00 09/26/20 09/27/20 09/27/20 22:59 06:59 14:59 Intake Total 460 / 820 120 / 940 358 / 358 Output Total 450 / 450 400 / 850 Balance 10 / 370 -280 / 90 358 / 358 Physical Exam Const: COMMON NORMALS: no acute distress and patient oriented x3 Resp: COMMON NORMALS: normal respiratory effort, No retractions and No use of accessory muscles AUSCULTATION: diminished lung sounds diffuse Cardio: COMMON NORMALS: regular rate, regular rhythm, S1 normal heart sound p resent and S2 normal heart sound present RATE: regular rate RHYTHM: regular rhythm HEART SOUNDS: S1 normal heart sound present and S2 normal heart sound present GI: COMMON NORMALS: Normal to inspection, nondistended, normoactive bowel sounds present, Soft to palpation and non-tender PALPATION: Yes Soft to palpation Extremity: COMMON NORMALS: no pedal edema Neuro: COMMON NORMALS: patient oriented x3 Psych: COMMON NORMALS: mental status grossly normal Data : 09/27/20 04:18 09/27/20 04:18 A&P Assessment and plan (1) Hypoxia: Status: Acute (2) COVID-19: Status: Acute (3) Dehydration: Status: Acute (4) BALJIT (acute kidney injury): Status: Acute (5) Hyperkalemia: Status: Acute Additional A&P Information Acute hypoxia related to COVID-19 pneumonia Afebrile Procalcitonin unremarkable O2 requirement today 45 L 50% Patient endorsing improvement in her energy and able to eat her meals now Continue remdesivir and Decadron Status post Actemra 09/25 Monitor inflammatory markers every 48 hours BALJIT on chronic kidney disease Baseline creatinine seems to be around 1.3- 1.5, today creatinine 1.3 secondary to dehydration: In positive net balance, creatinine improving Hyperkalemia improved as well I do believe her urine output has not been calculated appropriately Monitor creatinine with urine output encouraged p.o. intake Anorexia: Gradually improving Essential hypertension: Normotensive, lisinopril on hold Full code Heparin DVT prophylaxis Cardiac diet Plan for today, continue remdesivir, continue Decadron, monitor respiratory stat us Attestations Medical Necessity Statement*: Patient requires hospitalization for acute respiratory failure secondary COVID-19 pneumonia Coding Level of Care Code Acute Assessment Analyst for [facility] Diagnoses Hypoxia R09.02 COVID-19 U07.1 Dehydration E86.0 BALJIT (acute kidney injury) N17.9 Hyperkalemia E87.5
[2020-09-27 17:08] LABS: Glucose Point of Care 149 mg/dL (70-110)
[2020-09-27] MEDS: remdesivir 100 MG in sodium chloride 0.9% (100 ml) 100 ML IV (18:48)
[2020-09-27 20:41] LABS: Glucose Point of Care 165 mg/dL (70-110)
[2020-09-27] MEDS: acetaminophen 500 mg Tablet PO (20:47)
[2020-09-28] VITALS (11 sets, daily range): BP systolic 134–156; BP diastolic 80–85; PULSE 67–96; RESP 18–25; TEMP 36.3–36.8; O2SAT 89–98
[2020-09-28] MEDS: heparin 5,000 unit/mL INJ 1 mL 5000 UNIT SUBCUT ×3 (01:43→18:07)
[2020-09-28 05:33] LABS: Basophils % 0.3 %; Eosinophils % 0.2 %; Hematocrit 38.1 % (37.0-47.0); Hemoglobin 12.7 g/dL (11.5-15.3); Lymphocytes # 0.6 10^3/uL (0.8-4.8); Lymphocytes % 9.6 %; Mean Corpuscular HGB Conc 33.3 g/dL (30.0-36.0); Mean Corpuscular Hemoglobin 29.2 pg (28.0-34.0); Mean Corpuscular Volume 87.6 fl (81-99); Mean Platelet Volume 9.1 fL (7.4-10.4); Monocytes # 0.4 10^3/uL (0.2-0.9); Monocytes % 5.7 %; Neutrophils % 81.7 %; Nucleated Red Blood Cells % 0 %; Platelet Count 508 10^3/cmm (130-400); Red Blood Count 4.35 10^6/uL (4.1-5.3); Red Cell Distribution Width 12.8 % (12.1-15.1); White Blood Count 6.1 10^3/uL (4.0-10.0)
[2020-09-28 05:57] LABS: Alanine Aminotransferase 49 U/L (0-33); Alkaline Phosphatase 91 IU/L (35-105); Anion Gap 18.7 (5-19); Aspartate Amino Transferase 27 U/L (0-32); Blood Urea Nitrogen 38 mg/dL (8-23); Calcium 9.4 mg/dL (8.5-10.5); Carbon Dioxide 20 mmol/L (22-29); Chloride 100 mmol/L (98-107); Globulin 3.7 g/dL (1.3-4.6); Glucose 105 mg/dL (65-115); Magnesium 1.9 mg/dL (1.7-2.3); Osmolality Calculated 287 mOsm/kg (285-295); Phosphorus 4.7 mg/dL (2.5-4.5); Potassium 4.7 mmol/L (3.5-5.1); Sodium 134 mmol/L (136-145); Total Bilirubin 0.3 mg/dL (0.15-1.2); Total Protein 6.7 g/dL (6.6-8.7)
[2020-09-28 06:04] LABS: NT Pro B Type Natriuretic Pept 671 pg/mL (0-125); Procalcitonin 0.13 ng/mL (0-0.5)
[2020-09-28 06:15] LABS: Creatine Phosphokinase 19 U/L (26-192)
[2020-09-28 06:52] LABS: Glucose Point of Care 100 mg/dL (70-110)
[2020-09-28] MEDS: dexamethasone 4 mg Tablet 6 MG PO (08:32)
[2020-09-28] MEDS: amlodipine 5 mg Tablet PO (08:33)
[2020-09-28] MEDS: aspirin 81 mg EC Tablet PO (08:33)
[2020-09-28] MEDS: metoprolol tartrate 25 mg Tablet PO ×2 (08:33→18:07)
[2020-09-28] MEDS: pantoprazole DR 40 mg Tablet PO (08:33)
[2020-09-28 11:14] LABS: Glucose Point of Care 121 mg/dL (70-110)
--- NOTE | 2020-09-28 11:44 | P.PN_ITS ---
Subjective Subjective: Interval history: Patient was seen this morning, no fevers, has a cough, ambulating without significant symptomatology, remains on high flow Vitals/I&O/Wt Last Vital Signs Temp 97.4 F L 09/28/20 08:00 Pulse 82 09/28/20 11:25 Resp 20 H 09/28/20 11:25 BP 143/84 09/28/20 08:00 Pulse Ox 96 09/28/20 11:25 09/27/20 09/28/20 09/28/20 22:59 06:59 14:59 Intake Total 580 / 938 960 / 1898 120 / 120 Output Total 800 / 800 400 / 1200 120 / 120 Balance -220 / 138 560 / 698 0 / 0 Physical Exam Const: COMMON NORMALS: no acute distress and patient oriented x3 Resp: COMMON NORMALS: normal respiratory effort, No retractions, No use of accessory muscles and clear to auscultation bilaterally AUSCULTATION: clear to auscultation bilaterally Cardio: COMMON NORMALS: regular rate, regular rhythm, S1 normal heart sound present, S2 normal heart sound present and No murmurs present (Cardio) RATE: regular rate RHYTHM: regular rhythm HEART SOUNDS: S1 normal heart sound present and S2 normal heart sound present GI: COMMON NORMALS: Normal to inspection, nondistended, normoactive bowel sounds present, Soft to palpation and non-tender PALPATION: Yes Soft to palpation Extremity: COMMON NORMALS: no pedal edema Neuro: COMMON NORMALS: patient oriented x3 Data : 09/28/20 04:24 09/28/20 04:24 A&P Assessment and plan (1) Hypoxia: Status: Acute (2) COVID-19: Status: Acute (3) Dehydration: Status: Acute (4) BALJIT (acute kidney injury): Status: Acute (5) Hyperkalemia: Status: Acute Additional A&P Information Acute hypoxia related to COVID-19 pneumonia Afebrile Procalcitonin unremarkable O2 requirement today down to 8 L Patient endorsing improvement in her energy and able to eat her meals now Continue remdesivir last dose today and Decadron Status post Actemra 09/25 Monitor inflammatory markers every 48 hours BALJIT on chronic kidney disease Baseline creatinine seems to be around 1.3- 1.5, today creatinine 1.4 secondary to dehydration: In positive net balance, creatinine improving Hyperkalemia improved as well I do believe her urine output has not been calculated appropriately Monitor creatinine with urine output encouraged p.o. intake Anorexia: Gradually improving Essential hypertension: Normotensive, lisinopril on hold Full code Heparin DVT prophylaxis Cardiac diet Plan for today, continue remdesivir, continue Decadron, monitor respiratory status, wean oxygen, potential discharge the next 24 hours Attestations Medical Necessity Statement*: Patient requires hospitalization due to COVID- 19, acute respiratory failure Coding Level of Care Code Acute Prevention Specialist for [facility] Diagnoses Hypoxia R09.02 COVID-19 U07.1 Dehydration E86.0 BALJIT (acute kidney injury) N17.9 Hyperkalemia E87.5
[2020-09-28 17:07] LABS: Glucose Point of Care 174 mg/dL (70-110)
[2020-09-28] MEDS: remdesivir 100 MG in sodium chloride 0.9% (100 ml) 100 ML IV (18:07)
--- NOTE | 2020-09-28 19:31 | PC.NURSE ---
remdesivir infusion osmplete at this time. line flushed with 30 cc of normal saline. no further needs at this time.
[2020-09-28 21:57] LABS: Glucose Point of Care 185 mg/dL (70-110)
[2020-09-28] MEDS: acetaminophen 500 mg Tablet PO (22:12)
[2020-09-29] VITALS (10 sets, daily range): BP systolic 119–151; BP diastolic 75–92; PULSE 62–81; RESP 18–30; TEMP 36.4–36.9; O2SAT 94–97
[2020-09-29] MEDS: heparin 5,000 unit/mL INJ 1 mL 5000 UNIT SUBCUT ×3 (01:58→17:32)
[2020-09-29 06:33] LABS: Basophils % 0.2 %; Eosinophils % 0.2 %; Hematocrit 36.8 % (37.0-47.0); Hemoglobin 12.2 g/dL (11.5-15.3); Lymphocytes # 0.8 10^3/uL (0.8-4.8); Mean Corpuscular HGB Conc 33.2 g/dL (30.0-36.0); Mean Corpuscular Hemoglobin 29.2 pg (28.0-34.0); Monocytes # 0.4 10^3/uL (0.2-0.9); Monocytes % 6.3 %; Neutrophils # 4.57 10^3/uL (1.8-7.7); Neutrophils % 78.2 %; Nucleated Red Blood Cells % 0 %; Platelet Count 475 10^3/cmm (130-400); Red Blood Count 4.18 10^6/uL (4.1-5.3); Red Cell Distribution Width 12.6 % (12.1-15.1); White Blood Count 5.8 10^3/uL (4.0-10.0)
[2020-09-29 06:54] LABS: Glucose Point of Care 101 mg/dL (70-110)
[2020-09-29 07:10] LABS: Alanine Aminotransferase 42 U/L (0-33); Alkaline Phosphatase 79 IU/L (35-105); Aspartate Amino Transferase 18 U/L (0-32); Blood Urea Nitrogen 44 mg/dL (8-23); C Reactive Protein 17.5 mg/L (0.0-4.9); Calcium 9.4 mg/dL (8.5-10.5); Carbon Dioxide 22 mmol/L (22-29); Chloride 100 mmol/L (98-107); Globulin 3.4 g/dL (1.3-4.6); Glucose 89 mg/dL (65-115); Magnesium 1.8 mg/dL (1.7-2.3); Osmolality Calculated 289 mOsm/kg (285-295); Phosphorus 4.5 mg/dL (2.5-4.5); Sodium 134 mmol/L (136-145); Total Bilirubin 0.4 mg/dL (0.15-1.2); Total Protein 6.4 g/dL (6.6-8.7)
[2020-09-29] MEDS: pantoprazole DR 40 mg Tablet PO (10:53)
[2020-09-29] MEDS: aspirin 81 mg EC Tablet PO (10:53)
[2020-09-29] MEDS: amlodipine 5 mg Tablet PO (10:53)
[2020-09-29] MEDS: sodium chloride 0.9% 1,000 ML 75 ML IV (10:53)
[2020-09-29] MEDS: metoprolol tartrate 25 mg Tablet PO ×2 (10:54→17:32)
[2020-09-29] MEDS: dexamethasone 4 mg Tablet 6 MG PO (10:54)
[2020-09-29 11:15] LABS: NT Pro B Type Natriuretic Pept 431 pg/mL (0-125); Procalcitonin 0.11 ng/mL (0-0.5)
[2020-09-29 11:26] LABS: Creatine Phosphokinase 17 U/L (26-192)
[2020-09-29 11:36] LABS: Glucose Point of Care 103 mg/dL (70-110)
--- NOTE | 2020-09-29 13:15 | PC.SOCIAL ---
IMM Update: pg 2 of IMM updated and reviewed w/ patient.
--- NOTE | 2020-09-29 13:30 | P.PN_ITS ---
Subjective Subjective: Interval history: Patient was seen this morning, she is down to 4 to 5 L nasal cannula, she is a bit short of breath with exertion, no lower extremity edema, no chest pain, no fevers Vitals/I&O/Wt Last Vital Signs Temp 98.4 F 09/29/20 12:17 Pulse 65 09/29/20 12:17 Resp 18 09/29/20 12:17 BP 125/82 09/29/20 12:17 Pulse Ox 97 09/29/20 12:17 09/28/20 09/29/20 09/29/20 22:59 06:59 14:59 Intake Total 240 / 600 Output Total 900 / 1020 Balance -660 / -420 Physical Exam Const: COMMON NORMALS: no acute distress and patient oriented x3 Resp: COMMON NORMALS: normal respiratory effort, No retractions, No use of accessory muscles and clear to auscultation bilaterally AUSCULTATION: clear to auscultation bilaterally and diminished lung sounds diffuse Cardio: COMMON NORMALS: regular rate, regular rhythm, S1 normal heart sound present, S2 normal heart sound present and No murmurs present (Cardio) RATE: regular rate RHYTHM: regular rhythm HEART SOUNDS: S1 normal heart sound present and S2 normal heart sound present GI: COMMON NORMALS: Normal to inspection, nondistended, normoactive bowel sounds present, Soft to palpation and non-tender PALPATION: Yes Soft to palpation Extremity: COMMON NORMALS: no pedal edema Neuro: COMMON NORMALS: patient oriented x3 Psych: COMMON NORMALS: mental status grossly normal Data : 09/29/20 05:25 09/29/20 05:25 A&P Assessment and plan (1) Hypoxia: Status: Acute (2) COVID-19: Status: Acute (3) Dehydration: Status: Acute (4) BALJIT (acute kidney injury): Status: Acute (5) Hyperkalemia: Status: Acute Additional A&P Information Acute hypoxia related to COVID-19 pneumonia Afebrile Procalcitonin unremarkable O2 requirement today down to 4 L Patient endorsing improvement in her energy and able to eat her meals now Completed remdesivir, continue Decadron Status post Actemra 09/25 Monitor inflammatory markers every 48 hours BALJIT on chronic kidney disease Baseline creatinine seems to be around 1.3- 1.5, today creatinine 1.6 Will give 1 bag of normal saline, given upward trending creatinine although patient clinically improving Hyperkalemia improved as well encouraged p.o. intake Anorexia: Gradually improving Essential hypertension: Normotensive, lisinopril on hold Full code Heparin DVT prophylaxis Cardiac diet Plan for today, continue Decadron, monitor respiratory status, wean oxygen, potential discharge 4 hours, continue IV fluids Attestations Medical Necessity Statement*: Patient requires hospitalization for acute respiratory failure secondary COVID-19 Coding Level of Care Code Acute Command Post Superintendent for [facility] Diagnoses Hypoxia R09.02 COVID-19 U07.1 Dehydration E86.0 BALJIT (acute kidney injury) N17.9 Hyperkalemia E87.5
[2020-09-29 17:10] LABS: Glucose Point of Care 186 mg/dL (70-110)
[2020-09-29 17:40] LABS: Blood Gas Sample Site ARTERIAL
[2020-09-29 21:23] LABS: Glucose Point of Care 141 mg/dL (70-110)
[2020-09-30] MEDS: heparin 5,000 unit/mL INJ 1 mL 5000 UNIT SUBCUT ×2 (01:02→09:00)
[2020-09-30 03:37] VITALS: BP 121/67; PULSE 68; RESP 21; TEMP 36.6; O2SAT 96
[2020-09-30 06:54] LABS: Glucose Point of Care 96 mg/dL (70-110)
[2020-09-30 07:16] LABS: Basophils % 0.2 %; Eosinophils % 0.2 %; Hemoglobin 12.6 g/dL (11.5-15.3); Lymphocytes # 0.9 10^3/uL (0.8-4.8); Mean Corpuscular HGB Conc 32.3 g/dL (30.0-36.0); Mean Corpuscular Volume 83.7 fl (81-99); Mean Platelet Volume 9.6 fL (7.4-10.4); Monocytes # 0.6 10^3/uL (0.2-0.9); Monocytes % 4.4 %; Neutrophils # 11.56 10^3/uL (1.8-7.7); Neutrophils % 87.1 %; Nucleated Red Blood Cells % 0 %; Platelet Count 277 10^3/cmm (130-400); Red Blood Count 4.66 10^6/uL (4.1-5.3); Red Cell Distribution Width 14.2 % (12.1-15.1); White Blood Count 13.3 10^3/uL (4.0-10.0)
[2020-09-30 07:33] LABS: Alanine Aminotransferase 28 U/L (0-33); Albumin Level 3.2 g/dL (3.5-5.2); Alkaline Phosphatase 113 IU/L (35-105); Anion Gap 16.5 (5-19); Aspartate Amino Transferase 16 U/L (0-32); Blood Urea Nitrogen 16 mg/dL (8-23); C Reactive Protein 2.4 mg/L (0.0-4.9); Calcium 9.1 mg/dL (8.5-10.5); Carbon Dioxide 23 mmol/L (22-29); Chloride 101 mmol/L (98-107); Globulin 2.7 g/dL (1.3-4.6); Glucose 214 mg/dL (65-115); Magnesium 1.8 mg/dL (1.7-2.3); Osmolality Calculated 290 mOsm/kg (285-295); Phosphorus 4.7 mg/dL (2.5-4.5); Potassium 4.5 mmol/L (3.5-5.1); Sodium 136 mmol/L (136-145); Total Bilirubin 0.5 mg/dL (0.15-1.2); Total Protein 5.9 g/dL (6.6-8.7)
[2020-09-30 07:57] LABS: NT Pro B Type Natriuretic Pept 140 pg/mL (0-125); Procalcitonin 0.02 ng/mL (0-0.5)
[2020-09-30 07:58] VITALS: BP 126/84; PULSE 67; RESP 16; TEMP 36.3; O2SAT 92
[2020-09-30 08:09] VITALS: PULSE 80; RESP 18; O2SAT 95
[2020-09-30 08:10] LABS: Creatine Phosphokinase 29 U/L (26-192)
[2020-09-30] MEDS: metoprolol tartrate 25 mg Tablet PO (09:00)
[2020-09-30] MEDS: dexamethasone 4 mg Tablet 6 MG PO (09:00)
[2020-09-30] MEDS: pantoprazole DR 40 mg Tablet PO (09:00)
[2020-09-30] MEDS: aspirin 81 mg EC Tablet PO (09:00)
[2020-09-30] MEDS: amlodipine 5 mg Tablet PO (09:00)
[2020-09-30 10:48] VITALS: O2SAT 88; O2SAT 92
--- NOTE | 2020-09-30 11:12 | PM.DCS ---
Discharge Providers Date of Admission: 09/24/20 15:22 Date of Discharge: September 30, 2020 Attending Provider at Admission: Joanne Tarango MD Attending Provider at Discharge: Rubén Lopez MD Primary Care Provider: Maikel Yancey MD Diagnoses at Discharge Discharge Diagnosis (1) Hypoxia: Status: Acute (2) COVID-19: Status: Acute (3) Dehydration: Status: Acute (4) BALJIT (acute kidney injury): Status: Acute (5) Hyperkalemia: Status: Acute Reason for Visit Reason for Visit: COVID, DIFF BREATHING Hospital Course Hospital Course This is a 70-year-old female with a past medical history of hypertension, hyperlipidemia, GERD, type 2 diabetes mellitus, who presents [facility] due to complaints of shortness of breath, patient was admitted to [facility] for acute hypoxic respiratory failure secondary to COVID-19 pneumonia, was admitted to the Covid unit, received remdesivir, Decadron, broad-spectrum antibiotic therapy, clinically monitored. Patient clinically improved, received intermittent diuresis. She will be discharged on Advair, albuterol, doxycycline, with close follow-up with primary care provider in 1 week, follow-up with pulmonary in 1 month In terms of hypercoagulability prophylaxis for COVID-19, he has not had any recent surgeries, no history of DVT or PEs in the past, he is to resume his aspirin and statin. I advised patient that he is a low risk of a DVT or PE, but that does not mean that he has no risk, he should remain mobile, if he were to have any signs of DVT or PE, go to the emergency room. Currently I feel that the risks of anticoagulation, outweighs its benefit. Physical Exam Const: COMMON NORMALS: no acute distress and patient oriented x3 Resp: COMMON NORMALS: normal respiratory effort, No retractions, No use of accessory muscles and clear to auscultation bilaterally AUSCULTATION: clear to auscultation bilaterally Cardio: COMMON NORMALS: regular rate, regular rhythm, S1 normal heart sound present and S2 normal heart sound present RATE: regular rate RHYTHM: regular rhythm HEART SOUNDS: S1 normal heart sound present and S2 normal heart sound present GI: COMMON NORMALS: Normal to inspection, nondistended, normoactive bowel sounds present, Soft to palpation and non-tender PALPATION: Yes Soft to palpation Extremity: COMMON NORMALS: no pedal edema Neuro: COMMON NORMALS: patient oriented x3 Discharge Data Data Completed and Pending: Completed Studies During Hospitalization Category Date Time Status CT angio chest PE protcl [id number] Stat Cat Scan 09/26/20 12:36 Completed XR chest 1V florentin ble [id number] Urgent Exams 09/24/20 12:22 [place] [id number] Routin e Ultrasound 09/25/20 13:38 Completed Labs from last 24 hours 09/30/20 09/30/20 09/30/20 06:35 05:35 05:35 WBC RBC Hgb Hct MCV MCH MCHC RDW Plt Count MPV Neut % (Auto) Lymph % (Auto) Grant % (Auto) Eos % (Auto) Baso % (Auto) Neut # (Auto) Lymph # (Auto) Grant # (Auto) Eos # (Auto) Baso # (Auto) Nucleated RBC % (a uto) Nucleated RBCs # Sample Site Sodium 136 Potassium 4.5 Chloride 101 Carbon Dioxide 23 Anion Gap 16.5 BUN 16 Creatinine 0.4 L GFR Calculation Not Reportable Glucose 214 H POC Glucose 96 Calculated Osmolal ity 290 Calcium 9.1 Phosphorus 4.7 H Magnesium 1.8 Total Bilirubin 0.5 AST 16 ALT 28 Alkaline Phosphata se 113 H Creatine Kinase 29 C-Reactive Protein 2.4 NT-Pro-B Natriuret Pep 140 H Total Protein 5.9 L Albumin 3.2 L Globulin 2.7 Procalcitonin 0.02 09/30/20 09/29/20 09/29/20 05:35 21:04 17:05 WBC 13.3 H RBC 4.66 Hgb 12.6 Hct 39.0 MCV 83.7 MCH 27.0 L MCHC 32.3 RDW 14.2 Plt Count 277 D MPV 9.6 Neut % (Auto) 87.1 Lymph % (Auto) 7.0 Grant % (Auto) 4.4 Eos % (Auto) 0.2 Baso % (Auto) 0.2 Neut # (Auto) 11.56 H Lymph # (Auto) 0.9 Grant # (Auto) 0.6 Eos # (Auto) 0.0 Baso # (Auto) 0.0 Nucleated RBC % (a uto) 0 Nucleated RBCs # 0.0 Sample Site Sodium Potassium Chloride Carbon Dioxide Anion Gap BUN Creatinine GFR Calculation Glucose POC Glucose 141 H 186 H Calculated Osmolal ity Calcium Phosphorus Magnesium Total Bilirubin AST ALT Alkaline Phosphata se Creatine Kinase C-Reactive Protein NT-Pro-B Natriuret Pep Total Protein Albumin Globulin Procalcitonin 09/29/20 09/29/20 09/25/20 11:25 05:25 05:02 WBC RBC Hgb Hct MCV MCH MCHC RDW Plt Count MPV Neut % (Auto) Lymph % (Auto) Grant % (Auto) Eos % (Auto) Baso % (Auto) Neut # (Auto) Lymph # (Auto) Grant # (Auto) Eos # (Auto) Baso # (Auto) Nucleated RBC % (a uto) Nucleated RBCs # Sample Site Arterial Sodium Potassium Chloride Carbon Dioxide Anion Gap BUN Creatinine GFR Calculation Glucose POC Glucose 103 Calculated Osmolal ity Calcium Phosphorus Magnesium Total Bilirubin AST ALT Alkaline Phosphata se Creatine Kinase 17 L C-Reactive Protein NT-Pro-B Natriuret Pep 431 H Total Protein Albumin Globulin Procalcitonin 0.11 Vitals: Last Vital Signs Temp 97.4 F L 09/30/20 07:58 Pulse 80 09/30/20 08:09 Resp 18 09/30/20 08:09 BP 126/84 09/30/20 07:58 Pulse Ox 88 L 09/30/20 10:48 Discharge Plan Discharge Patient Disposition: Home Condition: Stable Prescriptions: New benzonatate 100 mg Capsule 100 mg PO TID PRN (Reason: Cough) 15 Days Qty: 45 RF: 0 fluticasone propion-salmeterol [Advair Diskus] 100-50 mcg/dose blister with device 1 inh inhalation BID Qty: 60 RF: 0 ascorbic acid (vitamin C) 500 mg tablet 500 mg PO BID 30 Days Qty: 60 RF: 0 cholecalciferol (vitamin D3) [Vitamin D3] 25 mcg (1,000 unit) capsule 1,000 unit PO DAILY 30 Days Qty: 30 RF: 0 zinc 50 mg tablet 50 mg PO DAILY 30 Days Qty: 30 RF: 0 albuterol sulfate 90 mcg/actuation HFA aerosol inhaler 1 inh inhalation Q6H PRN (Reason: shortness of breath or wheezing) Qty: 8.5 RF: 0 doxycycline hyclate 100 mg capsule 100 mg PO BID 5 Days Qty: 10 RF: 0 Continued amlodipine 5 mg tablet 5 mg PO DAILY RF: 0 lovastatin 10 mg tablet 10 mg PO DAILY RF: 0 metoprolol tartrate 25 mg tablet 25 mg PO BID RF: 0 metformin 500 mg tablet 500 mg PO BID RF: 0 magnesium 250 mg tablet 250 mg PO DAILY RF: 0 lisinopril 10 mg tablet 10 mg PO BID RF: 0 gabapentin 600 mg tablet 600 mg PO TID RF: 0 omeprazole 20 mg capsule,delayed release(DR/EC) 20 mg PO DAILY RF: 0 Aspir-81 81 mg Tablet,Delayed Release (Dr/Ec) 81 mg PO DAILY RF: 0 Discharge Orders: Discharge Order (Routine); Ordered 09/30/20 Ordered By: Rubén Lopez Other Ambulatory Orders: DME: Oxygen (Order) Location: None Selected Ordered By: Rubén Lopez Referrals: Aden Moon MD [Physician] - 1 month Discharge Diet: Diabetic Discharge Activity: Resume usual activity Patient Instructions: Opioid Safety Activity Restrictions/Additional Instructions: -Please continue to self isolate, socially distance, facemask, hand wash -Please monitor for signs of blood clots, including DVTs or pulmonary emboli, if you have sudden onset of calf swelling, sudden onset of shortness of breath, or bloody cough go to the emergency room -Please continue to be mobile -Please discuss with the primary care provider about Covid vaccination -You have been discharged on 4 L oxygen at rest -Please use inhalers as prescribed Discharge Attestations Time Spent in Discharge Care*: less than 30 min Quality Metrics Clinical Quality Measures During this hospital stay, did patient experience: None Coding Level of Care Code Acute [facility] note Diagnoses Hypoxia R09.02 COVID-19 U07.1 Dehydration E86.0 BALJIT (acute kidney injury) N17.9 Hyperkalemia E87.5
[2020-09-30 11:32] VITALS: BP 116/78; PULSE 63; RESP 16; TEMP 36.4; O2SAT 94
[2020-09-30 11:55] LABS: Glucose Point of Care 117 mg/dL (70-110)
[2020-09-30 13:07] VITALS: BP 116/78; PULSE 63; RESP 16; TEMP 36.4; O2SAT 94
--- NOTE | 2020-09-30 13:09 | PC.NURSE ---
PT HAS DONE WELL FOR ME TODAY. PT HAS NOT HAD ANY COMPLAINTS OF PAIN. PT WILL DISCHARGE TODAY. PT HAS DONE WELL ON 4L NC. PT IS UP AND AMBULATING AND DOING GOOD GETTING UP TO BSC AND AROUND THE ROOM. DISCHARGE PAPERWORK GONE OVER WITH PT. ALL QUESTIONS ANSWERED. PRESCRIPTIONS SENT TO [facility] PER PT REQUEST. IVS WERE REMOVED. PT TOLERATED WELL. CATHETER TIPS INTACT. BELONGINGS WERE GATHERED AND SENT WITH PT. PT WHEELED OUT AND SAFELY DISCHARGED BY THIS NURSE AROUND 1300.
--- NOTE | 2020-10-04 14:08 | PC.SOCIAL ---
discharge follow up call made. patient filled all new prescriptions and is taking as prescribed. has follow up appointment with Dr. Moon. Patient doesn't want me to make follow up appointment with Dr. Yancey, she will make it if she feels she needs one. Says its hard for her to go with her daughters work schedule. Patient continue to use O2 at 4L. Feeling better but is still weak.
== END 2020-09-30 13:08 | disposition home or self-care (01) | DRG 177 ==
LOC: ER 12:40 → MS 2A 16:30
PROVIDERS: Admitting Provider Internal Medicine; Emergency Provider Emergency Medicine; PCP Family Medicine; Visit Provider Family Medicine
DX: U07.1 COVID-19 (principal); J12.82 Pneumonia due to coronavirus disease 2019; J96.01 Acute respiratory failure with hypoxia; N17.9 Acute kidney failure, unspecified; I12.9 Hypertensive chronic kidney disease with stage 1 through stage 4 chronic kidney disease, or unspecified chronic kidney disease; E11.22 Type 2 diabetes mellitus with diabetic chronic kidney disease; N18.30 Chronic kidney disease, stage 3 unspecified; E78.5 Hyperlipidemia, unspecified; Z85.42 Personal history of malignant neoplasm of other parts of uterus; E86.0 Dehydration; K21.9 Gastro-esophageal reflux disease without esophagitis; Z79.84 Long term (current) use of oral hypoglycemic drugs; Z79.82 Long term (current) use of aspirin
CPT/HCPCS: 36415; 36416; 36600; 71045; 71275; 80048; 80051; 80053; 81003; 82330; 82550; 82803; 82805; 82962; 83605; 83735; 83880; 84100; 84145; 84484; 85025; 85378; 86140; 93005; 93970; 94640; 96361; 96372; 96374; 96375; 97110; 97116; 97161; 97165; 99285; J0610; J1644; J1815; J3262; J7030; J7040; J8540; Q9967

== ENCOUNTER 2020-11-07 11:20 | Outpatient (CLI) | payer MEDICARE, SELFPAY ==
--- NOTE | 2020-11-07 11:24 | XR_ITS ---
WS: [id number] PROCEDURE: XR chest 2V* [id number] CLINICAL INFORMATION: Shortness of breath COMPARISON: September 24, 2020 FINDINGS: Heart: Cardiomegaly. Ectatic thoracic aorta. Lungs: Advanced chronic emphysematous changes. Previously described diffuse bilateral pulmonary infil trates have improved compared to previous with residual infiltrates in the mid and lower lungs. No fo cody consolidation Bones: Moderate thoracic kyphosis. Anterior hypertrophic changes in the lower thoracic spine. XR/XR chest 2V* [id number] IMPRESSION: 1. Improved bilateral diffuse pulmonary infiltrates with mild residual subpleu ral infiltrates in the mid and lower lungs bilaterally. 2. Cardiomegaly with tortuous ectatic thoracic aorta. 3. Moderate thoracic kyphosis.
== END 2020-11-07 11:21 | disposition home or self-care (01) ==
PROVIDERS: PCP Family Medicine; Visit Provider Internal Medicine Critical Care Medicine
DX: R06.02 Shortness of breath (principal); U07.1 COVID-19; I51.7 Cardiomegaly; I77.810 Thoracic aortic ectasia; M40.204 Unspecified kyphosis, thoracic region
CPT/HCPCS: 71046

== ENCOUNTER 2021-01-30 09:05 | Outpatient (CLI) | payer MEDICARE, SELFPAY ==
--- NOTE | 2021-01-30 09:25 | MM_ITS ---
WS: [id number] BILATERAL DIGITAL SCREENING MAMMOGRAPHY WITH CAD CLINICAL INFORMATION: SCREENING HISTORY: Screening mammogram. No current complaints. COMPARISON: January 27, 2020 TECHNIQUE: Bilateral CC and MLO views. FINDINGS: Scattered fibroglandular densities bilaterally. Vascular calcification. Stable clustered calcificatio ns. Punctate and lucent centered calcifications. No suspicious focal mass, asymmetry, calcifications, or architectural distortion. No evidence of malignancy. MM/[place] [id number] IMPRESSION: BI-RADS: 2-Benign FOLLOW UP: 1 Year Follow-up Recommend return to annual screening mammography.
== END 2021-01-30 09:06 | disposition home or self-care (01) ==
LOC: RADSHAW 09:16
PROVIDERS: PCP Family Medicine; Visit Provider Family Medicine
DX: Z12.31 Encounter for screening mammogram for malignant neoplasm of breast (principal)
CPT/HCPCS: 77067

== ENCOUNTER → 2021-04-02 13:12 | Outpatient (BNVA) | payer MEDICARE, SELFPAY | PROVIDERS: PCP Family Medicine; Visit Provider Family Medicine | DX: R79.89 Other specified abnormal findings of blood chemistry (principal) | CPT/HCPCS: 80048 ==

== ENCOUNTER → 2021-05-01 08:40 | Outpatient (BNVA) | payer MEDICARE, SELFPAY | PROVIDERS: PCP Family Medicine; Visit Provider Family Medicine | DX: R79.89 Other specified abnormal findings of blood chemistry (principal) | CPT/HCPCS: 80048 ==

== ENCOUNTER → 2021-07-16 13:17 | Outpatient (BNVA) | payer MEDICARE, SELFPAY | PROVIDERS: PCP Family Medicine; Visit Provider Nurse Practitioner Family | DX: M79.675 Pain in left toe(s) (principal); M79.605 Pain in left leg; M10.9 Gout, unspecified | CPT/HCPCS: 80053; 84550 ==

== ENCOUNTER 2022-02-17 07:51 | Outpatient (CLI) | payer MEDICARE, SELFPAY ==
--- NOTE | 2022-02-17 08:50 | MM_ITS ---
WS: [id number] BILATERAL 3D TOMOSYNTHESIS DIGITAL SCREENING MAMMOGRAPHY WITH CAD CLINICAL INFORMATION: SCREENING HISTORY: Screening mammogram. No current complaints. COMPARISON: January 30, 2021 TECHNIQUE: Bilateral CC and MLO views. FINDINGS: Scattered fibroglandular densities bilaterally. No suspicious focal mass, asymmetry, calcifications, or architectural distortion. No evidence of malignancy. Incidental bilateral punctate calcifications. Vascular calcification. MM/[place] [id number] IMPRESSION: BI-RADS: 2-Benign FOLLOW UP: 1 Year Follow-up Recommend return to annual screening mammography.
== END 2022-02-17 07:52 | disposition home or self-care (01) ==
LOC: RADSHAW 07:53
PROVIDERS: PCP Nurse Practitioner Family; Visit Provider Nurse Practitioner Family
DX: Z12.31 Encounter for screening mammogram for malignant neoplasm of breast (principal)
CPT/HCPCS: 77063; 77067

== ENCOUNTER 2022-05-14 09:03 | Outpatient (CLI) | payer MEDICARE, SELFPAY ==
--- NOTE | 2022-05-14 09:22 | MR_ITS ---
WS: [id number] MRI/MRCP OF THE ABDOMEN WITHOUT GADOLINIUM ENHANCEMENT TECHNIQUE: Coronal T2 Fase BH, Axial T2 Fase BH, Axial T2 FS BH, Zxial 3D Verduzco BH, Axial DWI BH, 2D MRCP Radial BH, 3D MRCP (Resp), and Axial 3D Dyn BH Post sequences. CLINICAL INFORMATION: POSTPRANDIAL ABDOMINAL PAIN IN LEFT UPPER QUADRANT COMPARISON: CT 2018 FINDINGS: Prior cholecystectomy. No intrahepatic biliary ductal dilatation. Common bile duct appears normal. No evidence of choledocholithiasis. Common bile duct tapers normally at the pancreatic head. Fatty atrophy of the pancreas. No pancreatic lesions. Normal pancreatic duct. Mild hepatomegaly with diffuse fatty infiltration. RIGHT hepatic lobe measuring 19.0 cm craniocaudal. Normal portal vein and splenic vein. Splenic granulomas. Small esophageal hiatal hernia. Adrenal gla nds are normal. No hydronephrosis in either kidney. Bilateral renal cortical atrophy. Normal caliber upper abdominal aorta with vascular calcification. Slight atelectasis in the lung bases. Tiny amount of perinephric edema can be seen with renal insufficiency. No other acute findings. MR/MR MRCP [id number] Impression: 1. Hepatomegaly with diffuse fatty infiltration liver. 2. Prior cholecystectomy. 3. Normal common bile duct. No evidence of choledocholithiasis. 4. Fatty atrophy of the pancreas. No evidence of pancreatic mass or lesion. No rmal pancreatic duct. 5. Bilateral renal cortical atrophy. No Hydronephrosis. 6. No other acute findings.
== END 2022-05-14 09:04 | disposition home or self-care (01) ==
PROVIDERS: PCP Nurse Practitioner Family; Visit Provider Internal Medicine
DX: R10.12 Left upper quadrant pain (principal); K76.0 Fatty (change of) liver, not elsewhere classified; K86.89 Other specified diseases of pancreas; N26.1 Atrophy of kidney (terminal)
CPT/HCPCS: 74181

== ENCOUNTER 2022-08-08 07:56 | Emergency (ER) | payer MEDICARE, SELFPAY ==
[2022-08-08] VITALS (9 sets, daily range): BP systolic 164–238; BP diastolic 99–122; PULSE 71–83; RESP 16–20; TEMP 36.5; O2SAT 94–97; BMI 30.8
--- NOTE | 2022-08-08 08:07 | ECG_ITS ---
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 Measurements Intervals [place] Rate: 68 P: 16 [place]: 144 QRS: -6 QRSD: 79 T: 75 QT: 380 QTc: 405 Interpretive Statements SINUS RHYTHM Compared to ECG 09/24/2020 14:44:00 No significant changes Electronically Signed On 08-08-2022 15:49:28 CDT by Nick Bardales M.D. [email or web address]
--- NOTE | 2022-08-08 08:10 | XR_ITS ---
WS: [id number] Exam: XR chest 1V portable [id number] Date/Time of Exam: 08/08/2022 8:10 AM Reason For Exam: chest pain Comparison 11/07/2020. The lungs are fully inflated and clear. Cardiomediastinal silhouette is unremarkable. No pleural effu sions. Bony structures are intact. XR/XR chest 1V portable [id number] IMPRESSION: 1. No acute cardiopulmonary finding.
--- NOTE | 2022-08-08 08:11 | ED_ITS ---
HPI - Chest Pain General: Chief Complaint: Upper Respiratory Infection Stated Complaint: chest pressure, sob, sinus pressure Time Seen by Provider: 08/08/22 08:01 Source: patient Mode of arrival: ambulatory Limitations: no limitations History of Present Illness: Patient is a 72-year-old female presents to ED today after she was told to come here after being evaluated by Erwin Cisneros. Patient states she has been having intermittent chest pains over the past 3 months or so. She states when pain com es on it only lasts for a few minutes before subsiding on its own. It does not seem to be associated with exercise/exertion. She has no known cardiac problems. She states over the past 1 to 2 days she began developing some nasal congestion/sinus pain as well as some chest congestion. She has not been running fevers. She does not complain of any shortness of breath or difficulty breathing. Patient is significantly hypertensive upon arrival at 238/117. She states she does have a history of hypertension. She does not check her blood pressures at home so isn't sure what is normal for her. MD complaint: chest pain Onset (ago): month(s) Timing of current episode: episodic Prior episodes: Yes Onset: during rest Pain location: substernal Pain radiation: none Severity: moderate Quality: sharp Relieving factors: nothing Exacerbating factors: nothing Associated symptoms: Deny abdominal pain, dyspnea, fever(s), nausea, palpitations, syncope or vomiting Treatment prior to arrival: none Risk Factors: Coronary artery disease risk factors: hyperlipidemia and hypertension Thoracic aortic dissection risk factors: none Related Data: On Oral Contraceptives: No Review of Systems Const: Denies: fever(s), chills, body aches, fatigue or malaise ENMT: Reports: nasal congestion Card: Reports: chest pain; Denies: palpitations, irregular heart rhythm, edema, swelling of feet/ankles, lightheadedness, syncope, pre-syncope, dyspnea on exertion, orthopnea, leg pain with exertion or acrocyanosis Resp: Reports: non-productive cough and chest congestion; Denies: dyspnea, wheezing or hemoptysis GI: Denies: abdominal pain, nausea, vomiting or diarrhea : Denies: flank pain, dysuria or hematuria Musc: Denies: neck pain, back pain, extremity pain or joint pain Skin/Breast: Denies: rash Neuro: Denies: headache(s), numbness in extremities, weakness in extremities or sensory changes PFSH ED PFSH: Medical History Endometrial adenocarcinoma HLD (hyperlipidemia) Stage 3 chronic kidney disease Type 2 diabetes mellitus Well woman exam with routine gynecological exam Surgical History H/O section 1975, 1978 H/O lumpectomy 1994 2000 H/O: hysterectomy 08/27/17 due to cancer S/P cholecystectomy 1981 S/P tubal ligation 1978 Family History Mother Diabetes Hypertension Father Diabetes Heart block Hypertension Brother Diabetes Denies family history of Clotting disorder Anesthesia complication Bleeding disorder Stroke Social History Smoking and tobacco status: never smoked Second hand smoke exposure: No Smoking risk assessment/counseling performed?: No Alcohol intake: never Desire information about alcohol rehabilitation?: No Counseling given: No Substance/Drug Use: never Desire information about substance/drug rehabilitation?: No Counseling given: No Adopted: No Caregiver/support person: No Lives independently: Yes Household members: none Housing: House Marital status: / service: No Current occupational status: retired Do you think of yourself as: Straight/Heterosexual Current gender identity: Female Physical Exam Const: COMMON NORMALS: no acute distress, average body habitus, patient oriented x3, no limitations, healthy appearing, alert and well nourished GENERAL APPEARANCE: cooperative ORIENTATION/CONSCIOUSNESS: Yes awake, Yes oriented to person, Yes oriented to place and Yes oriented to time HENMT: COMMON NORMALS: normocephalic, atraumatic and Normal external nose present HEAD & SCALP: normal to inspection, normocephalic and atraumatic FACE & SINUS: sinus tenderness (mild maxillary) NOSE: Normal external nose present MOUTH: Normal oral and palatal mucosa present, lip normal and tongue normal THROAT: posterior oropharynx normal Eye: GENERAL EYE: appearance normal, both eyes and all related structures Neck/C-Spine: COMMON NORMALS: full ROM, no lymphadenopathy, supple, no meningeal signs and no JVD Chest: COMMONS NORMALS: normal inspection of the chest and normal palpation of entire chest wall Resp: COMMON NORMALS: normal respiratory effort and clear to auscultation bilaterally AUSCULTATION: clear to auscultation bilaterally Cardio: COMMON NORMALS: no JVD, regular rate and regular rhythm RATE: regular rate RHYTHM: regular rhythm GI: COMMON NORMALS: Normal to inspection, nondistended, normoactive bowel sounds present, Soft to palpation, non-tender, No hepatosplenomegaly present and no masses PALPATION: Yes Soft to palpation and Yes No hepatosplenomegaly present : COMMON NORMALS: Yes no CVA tenderness BLADDER/KIDNEY EXAM: Yes no CVA tenderness Back/Pelvis: COMMON NORMALS: no CVA tenderness, thoracic and lumbar spine normal to inspection, no thoracic nor lumbar tenderness and thoraco-lumbar ROM normal Extremity: COMMON NORMALS: normal to inspection GENERAL: Yes normal exam except as noted Neuro: DALTON COMA SCALE: document GCS findings Lowry coma scale eye opening: Spontaneous Lowry coma scale verbal response: Orientated Lowry coma scale motor response: Obey commands Lowry coma scale total score: 15 COMMON NORMALS: patient oriented x3, moves all extremities, no focal motor deficits, no sensory deficits noted and gait normal SENSORIUM/ORIENTATION: Yes alert, Yes oriented to person, Yes oriented to place and Yes oriented to time MENINGEAL SIGNS: Yes no meningeal signs Skin: COMMON NORMALS: no rashes or lesions noted GENERAL SKIN EXAM: no rashes or lesions noted Course Vital Signs: Vital signs: Vital Signs Temperature 97.7 F 08/08/22 08:01 Pulse Rate 75 08/08/22 10:32 Respiratory Rate 18 08/08/22 10:32 Blood Pressure 181/116 08/08/22 11:12 Pulse Oximetry 97 08/08/22 10:32 Oxygen Delivery Me thod Room Air 08/08/22 10:00 MDM - Chest Pain Medical Decision Making Upon re-examination patient states she is not having any chest pain. Her blood work overall is unremarkable. Baseline troponin of 16 (was 16 back in 2020) with a negative delta. Baseline repeat EKG showed no ischemic changes. Recommend she discuss with primary care during follow-up about outpatient stress test if they feel this is indicated. Not have any concerns for acute coronary syndrome at this time. She does have mild congestion/rhinorrhea and chest congestion most likely allergies versus mild viral URI. This can be treated conservatively/symptomatically at home. Blood pressures remained elevated here. She does not know what a normal blood pressure for her is. Recommend she keep a detailed blood pressure log and follow-up with primary care so they can tailor her blood pressure medications. Lab Data 08/08/22 08:10 08/08/22 08:10 Radiology Impressions Chest X-Ray 08/08/22 08:10 IMPRESSION: 1. No acute cardiopulmonary finding. Laboratory Results WBC 10.5 10^3/uL (4.0-10.0) H 08/08/22 08:10 RBC 4.73 10^6/uL (4.1-5.3) 08/08/22 08:10 Hgb 13.6 g/dL (11.5-15.3) 08/08/22 08:10 Hct 41.8 % (37.0-47.0) 08/08/22 08:10 MCV 88.4 fl (81-99) 08/08/22 08:10 MCH 28.8 pg (28.0-34.0) 08/08/22 08:10 MCHC 32.5 g/dL (30.0-36.0) 08/08/22 08:10 RDW 13.2 % (12.1-15.1) 08/08/22 08:10 Plt Count 227 10^3/cmm (130-400) 08/08/22 08:10 MPV 9.7 fL (7.4-10.4) 08/08/22 08:10 Neut % (Auto) 79.0 % 08/08/22 08:10 Lymph % (Auto) 13.8 % 08/08/22 08:10 Greene % (Auto) 4.1 % 08/08/22 08:10 Eos % (Auto) 2.2 % 08/08/22 08:10 Baso % (Auto) 0.3 % 08/08/22 08:10 Neut # (Auto) 8.26 10^3/uL (1.8-7.7) H 08/08/22 08:10 Lymph # (Auto) 1.4 10^3/uL (0.8-4.8) 08/08/22 08:10 Greene # (Auto) 0.4 10^3/uL (0.2-0.9) 08/08/22 08:10 Eos # (Auto) 0.2 10^3/uL (0.0-0.8) 08/08/22 08:10 Baso # (Auto) 0.0 10^3/uL (0.0-0.1) 08/08/22 08:10 Nucleated RBC % (auto) 0 % 08/08/22 08:10 Nucleated RBCs # 0.0 /100WBC 08/08/22 08:10 Sodium 137 mmol/L (136-145) 08/08/22 08:10 Potassium 4.4 mmol/L (3.5-5.1) 08/08/22 08:10 Chloride 99 mmol/L (98-107) 08/08/22 08:10 Carbon Dioxide 24 mmol/L (22-29) 08/08/22 08:10 Anion Gap 18.4 (5-19) 08/08/22 08:10 BUN 17 mg/dL (8-23) 08/08/22 08:10 Creatinine 1.5 mg/dL (0.5-0.9) H 08/08/22 08:10 GFR Calculation Not Reportable 08/08/22 08:10 Glucose 138 mg/dL (65-115) H 08/08/22 08:10 Calculated Osmolality 288 mOsm/kg (285-295) 08/08/22 08:10 Calcium 9.6 mg/dL (8.5-10.5) 08/08/22 08:10 Total Bilirubin 0.4 mg/dL (0.15-1.2) 08/08/22 08:10 AST 15 U/L (0-32) 08/08/22 08:10 ALT 15 U/L (0-33) 08/08/22 08:10 Alkaline Phosphatase 85 U/L (35-105) 08/08/22 08:10 Troponin T Baseline 16 ng/L (0-10) H 08/08/22 08:10 Troponin T 120 Minute 12.38 ng/L (0-10) H 08/08/22 10:26 Delta Troponin T -3.62 ABS# (0-10) L 08/08/22 10:26 Total Protein 8.1 g/dL (6.6-8.7) 08/08/22 08:10 Albumin 4.7 g/dL (3.5-5.2) 08/08/22 08:10 Globulin 3.4 g/dL (1.3-4.6) 08/08/22 08:10 Discharge Plan Discharge Patient Disposition: Home Clinical Impression: Intermittent chest pain, Symptoms of upper respiratory infection (URI) HTN (hypertension) Qualifiers: Hypertension type: unspecified Qualified Code(s): I10 - Essential (primary) hypertension Condition: Stable Prescriptions: No Action lovastatin 10 mg tablet 10 mg PO DAILY metoprolol tartrate 25 mg tablet 25 mg PO BID metformin 500 mg tablet 500 mg PO BID gabapentin 600 mg tablet 600 mg PO TID allopurinol 100 mg tablet 100 mg PO DAILY 90 Days Qty: 90 1RF lisinopril 10 mg tablet See Rx Instructions .ROUTE .COMPLEX Qty: 180 3RF Dose Instruction: TAKE 1 TABLET BY MOUTH TWICE DAILY Rx Instructions: TAKE 1 TABLET BY MOUTH TWICE DAILY aspirin 81 mg Tablet,Delayed Release (Dr/Ec) 81 mg PO DAILY albuterol sulfate 90 mcg/actuation HFA aerosol inhaler 1 inh inhalation Q6H PRN (Reason: shortness of breath or wheezing) Qty: 8.5 0RF Discharge Orders: Discharge ED (Routine); Ordered 08/08/22 Ordered By: Kathy Berger Referrals: Grace Hurst APN [Primary Care Provider] - Patient Instructions: Chest Pain (DC), Chronic Hypertension (DC) Activity Restrictions/Additional Instructions: As we discussed please follow-up with your primary care provider next week. They can evaluate you and discuss the need for a possible outpatient cardiac stress test. As we discussed you need to keep a blood pressure log/twice daily and follow-up with primary care so they can adjust blood pressure medications as needed. Coding Level of Care Code ED Communications Electrician Supervisor for Toshia Lua
[2022-08-08 08:27] LABS: Basophils % 0.3 %; Eosinophils # 0.2 10^3/uL (0.0-0.8); Eosinophils % 2.2 %; Hematocrit 41.8 % (37.0-47.0); Hemoglobin 13.6 g/dL (11.5-15.3); Lymphocytes # 1.4 10^3/uL (0.8-4.8); Lymphocytes % 13.8 %; Mean Corpuscular HGB Conc 32.5 g/dL (30.0-36.0); Mean Corpuscular Hemoglobin 28.8 pg (28.0-34.0); Mean Corpuscular Volume 88.4 fl (81-99); Mean Platelet Volume 9.7 fL (7.4-10.4); Monocytes # 0.4 10^3/uL (0.2-0.9); Monocytes % 4.1 %; Neutrophils # 8.26 10^3/uL (1.8-7.7); Nucleated Red Blood Cells % 0 %; Platelet Count 227 10^3/cmm (130-400); Red Blood Count 4.73 10^6/uL (4.1-5.3); Red Cell Distribution Width 13.2 % (12.1-15.1); White Blood Count 10.5 10^3/uL (4.0-10.0)
[2022-08-08] MEDS: hyDRALAzine 20 mg/mL INJ 1 mL 10 MG IVP (08:31)
[2022-08-08 08:44] LABS: Alanine Aminotransferase 15 U/L (0-33); Albumin Level 4.7 g/dL (3.5-5.2); Alkaline Phosphatase 85 U/L (35-105); Anion Gap 18.4 (5-19); Aspartate Amino Transferase 15 U/L (0-32); Blood Urea Nitrogen 17 mg/dL (8-23); Calcium 9.6 mg/dL (8.5-10.5); Carbon Dioxide 24 mmol/L (22-29); Chloride 99 mmol/L (98-107); Globulin 3.4 g/dL (1.3-4.6); Glucose 138 mg/dL (65-115); Osmolality Calculated 288 mOsm/kg (285-295); Potassium 4.4 mmol/L (3.5-5.1); Sodium 137 mmol/L (136-145); Total Bilirubin 0.4 mg/dL (0.15-1.2); Total Protein 8.1 g/dL (6.6-8.7); Troponin(5th) Baseline 16 ng/L (0-10)
[2022-08-08] MEDS: enalaprilat 1.25 mg/mL Inj IVP (08:48)
--- NOTE | 2022-08-08 10:10 | ECG_ITS ---
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 Measurements Intervals [place] Rate: 75 P: 20 HI: 136 QRS: -12 QRSD: 91 T: 82 QT: 380 QTc: 425 Interpretive Statements SINUS RHYTHM NONSPECIFIC T-WAVE ABNORMALITY Compared to ECG 08/08/2022 08:11:19 T-wave abnormality now present Electronically Signed On 08-08-2022 15:58:36 CDT by Nick Bardales M.D. [id number]
[2022-08-08] MEDS: metoprolol tartrate 1 mg/1 mL SDV 5 mL 2.5 MG IVP (10:40)
[2022-08-08 10:51] LABS: Troponin 5 2HR 12.38 ng/L (0-10)
[2022-08-08 10:55] LABS: Troponin 5 2HR Delta -3.62 ABS# (0-10)
== END 2022-08-08 11:18 | disposition home or self-care (01) ==
PROVIDERS: Emergency Provider Physician Assistant; PCP Nurse Practitioner Family
DX: R07.9 Chest pain, unspecified (principal); J06.9 Acute upper respiratory infection, unspecified; Z79.82 Long term (current) use of aspirin; Z79.84 Long term (current) use of oral hypoglycemic drugs; I12.9 Hypertensive chronic kidney disease with stage 1 through stage 4 chronic kidney disease, or unspecified chronic kidney disease; E11.22 Type 2 diabetes mellitus with diabetic chronic kidney disease; N18.30 Chronic kidney disease, stage 3 unspecified; E78.5 Hyperlipidemia, unspecified; Z85.42 Personal history of malignant neoplasm of other parts of uterus
CPT/HCPCS: 36415; 71045; 80053; 84484; 85025; 93005; 96374; 96375; 99285; J0360; J3490

== ENCOUNTER → 2022-08-26 11:09 | Outpatient (BNVA) | payer MEDICARE, SELFPAY | PROVIDERS: PCP Nurse Practitioner Family; Visit Provider Nurse Practitioner Family | DX: E79.0 Hyperuricemia without signs of inflammatory arthritis and tophaceous disease (principal); I10 Essential (primary) hypertension; E11.9 Type 2 diabetes mellitus without complications | CPT/HCPCS: 80053; 80061; 83036; 83735; 84443; 84550; 85025 ==

== ENCOUNTER → 2022-09-18 10:00 | Outpatient (BNVA) | payer MEDICARE, SELFPAY | PROVIDERS: PCP Nurse Practitioner Family; Visit Provider Nurse Practitioner Family | DX: R39.9 Unspecified symptoms and signs involving the genitourinary system (principal); N39.0 Urinary tract infection, site not specified | CPT/HCPCS: 81003; 87077; 87086; 87184 ==

== ENCOUNTER → 2022-12-02 07:30 | Outpatient (BNVA) | payer MEDICARE, SELFPAY | PROVIDERS: PCP Nurse Practitioner Family; Visit Provider Otolaryngology | DX: H92.01 Otalgia, right ear (principal); M26.623 Arthralgia of bilateral temporomandibular joint | CPT/HCPCS: 99203 ==

== ENCOUNTER 2023-02-18 09:04 | Outpatient (CLI) | payer MEDICARE, SELFPAY ==
--- NOTE | 2023-02-18 09:15 | MM_ITS ---
WS: [id number] BILATERAL SCREENING DIGITAL TOMOSYNTHESIS MAMMOGRAM WITH CAD HISTORY: SCREENING COMPARISON: 02/17/2022, 01/30/2021 Bilateral CC and MLO views with tomosynthesis and synthetic mammography submitted. Computer aided det ection analyzed. Breast composition: There are scattered areas of fibroglandular density. No suspicious masses, microc alcifications or architectural distortion. Scattered calcifications in each breast. IMPRESSION: MM/[place] [id number] BI-RADS: 2-Benign FOLLOW UP: 1 Year Follow-up
== END 2023-02-18 09:05 | disposition home or self-care (01) ==
LOC: RAD 09:04
PROVIDERS: PCP Nurse Practitioner Family; Visit Provider Nurse Practitioner Family
DX: Z12.31 Encounter for screening mammogram for malignant neoplasm of breast (principal); R92.323 Mammographic fibroglandular density, bilateral breasts; R92.1 Mammographic calcification found on diagnostic imaging of breast
CPT/HCPCS: 77063; 77067

== ENCOUNTER → 2023-02-20 10:27 | Outpatient (BNVA) | payer MEDICARE, SELFPAY | PROVIDERS: PCP Nurse Practitioner Family; Visit Provider Nurse Practitioner Family | DX: E11.9 Type 2 diabetes mellitus without complications (principal); I10 Essential (primary) hypertension; E78.5 Hyperlipidemia, unspecified; M10.9 Gout, unspecified | CPT/HCPCS: 80053; 80061; 83036; 84550; 85025 ==

== ENCOUNTER → 2023-03-11 10:38 | Outpatient (BNVA) | payer MEDICARE, SELFPAY | PROVIDERS: PCP Nurse Practitioner Family; Visit Provider Nurse Practitioner Family | DX: N18.30 Chronic kidney disease, stage 3 unspecified (principal) | CPT/HCPCS: 80048 ==

== ENCOUNTER → 2023-06-08 10:36 | Outpatient (BNVA) | payer MEDICARE, SELFPAY | PROVIDERS: PCP Nurse Practitioner Family; Visit Provider Nurse Practitioner Family | DX: E11.65 Type 2 diabetes mellitus with hyperglycemia | CPT/HCPCS: 80053; 80061; 82043; 83036; 83735; 84443; 85025 ==

== ENCOUNTER 2023-06-16 12:23 | Outpatient (CLI) | payer MEDICARE, SELFPAY ==
--- NOTE | 2023-06-16 12:44 | ECG_ITS ---
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 Interpretive Statements NAME OF STUDY: TREADMILL STRESS TEST INDICATION: Chest Pain, PROCEDURE: At the baseline, the patient's blood pressure was 162/90 with a heart rate of 96. The baseline electrocardiogram showed normal sinus rhythm with normal ST-Ts. Poor R wave progression. The patient exercised for 2 minutes and 30 seconds on a standard Matias protocol. Patient attained a maximum heart rate of 153 beats per minute(104% of the maximum predicted heart rate) with a blood pressure at the peak exercise of 174/90 r mm Hg. The EKG at the peak exercise revealed no significant changes. Patient did not have any chest pain or any significant cardiac arrhythmias with the exercise During the recovery phase, there were no new changes. Blood pressure at the end of the recovery phase was 185/90 mm Hg with a heart rate of 97 per minute. CONCLUSION: 1. Normal EKG response to treadmill exercise 2. No exercise-induced chest pain or significant cardiac arrhythmia 3. Impaired exercise tolerance, attained a maximum of 4.5 METs Electronically Signed On 06-20-2023 13:00:33 CDT by Anthony Villeda M.D. [id number]
[2023-06-16 12:50] VITALS: BMI 30.6
[2023-06-16 13:24] VITALS: BP 185/95; PULSE 104
== END 2023-06-16 12:24 | disposition home or self-care (01) ==
PROVIDERS: PCP Nurse Practitioner Family; Visit Provider Nurse Practitioner Family
DX: R07.9 Chest pain, unspecified (principal)
CPT/HCPCS: 93017

== ENCOUNTER → 2023-08-19 11:33 | Outpatient (BNVA) | payer MEDICARE, SELFPAY | PROVIDERS: PCP Nurse Practitioner Family; Visit Provider Nurse Practitioner Family | DX: E11.65 Type 2 diabetes mellitus with hyperglycemia (principal) | CPT/HCPCS: 80053; 85025 ==

== ENCOUNTER 2023-09-10 07:58 | Outpatient (CLI) | payer MEDICARE, SELFPAY ==
--- NOTE | 2023-09-10 08:15 | USCV_ITS ---
Linette Jhaveri Age: 73 Gender: F : 1950 Exam Date: 09/10/2023 08:16 Ordering Phys: Shandra Barreto BORING INSPECTOR Technologist: URI Exam Location: [facility] [place] Indication: Pain HISTORY: Lower extremity pain. PROCEDURES: Venous duplex imaging was performed in only the left lower extremity. The following venous structures were evaluated: common femoral vein, profunda vein, proximal portion of the greater saphenous vein, superficial femoral vein, and the popliteal vein. In addition, the posterior tibial and peroneal trunk were evaluated. Serial compression, augmentation maneuvers, and spectral Doppler flow evaluation were performed. FINDINGS: No evidence of DVT seen in any vessel visualized at this time. CONCLUSIONS No evidence of left lower extremity DVT. Pranay Stahl MD (Electronically Signed) Final Date: 10 September 2023 09:08 S
== END 2023-09-10 07:59 | disposition home or self-care (01) ==
LOC: RAD 07:58
PROVIDERS: PCP Nurse Practitioner Family; Visit Provider Nurse Practitioner Family
DX: M79.605 Pain in left leg (principal); N28.9 Disorder of kidney and ureter, unspecified; N18.9 Chronic kidney disease, unspecified; E87.29 Other acidosis; N18.30 Chronic kidney disease, stage 3 unspecified; E11.65 Type 2 diabetes mellitus with hyperglycemia
CPT/HCPCS: 80053; 80061; 80069; 82043; 83036; 84443; 85025; 93971

== ENCOUNTER → 2023-09-29 16:24 | Outpatient (BNVA) | payer MEDICARE, SELFPAY | PROVIDERS: PCP Nurse Practitioner Family; Visit Provider Nurse Practitioner Family | DX: R30.0 Dysuria (principal) | CPT/HCPCS: 81000; 81015 ==

== ENCOUNTER → 2023-12-14 09:33 | Outpatient (BNVA) | payer MEDICARE, SELFPAY | PROVIDERS: PCP Nurse Practitioner Family; Visit Provider Nurse Practitioner Family | DX: E11.65 Type 2 diabetes mellitus with hyperglycemia (principal) | CPT/HCPCS: 80053; 80061; 82607; 83036; 83735; 84443; 85025 ==

== ENCOUNTER 2024-03-02 09:20 | Outpatient (CLI) | payer MEDICARE, SELFPAY ==
--- NOTE | 2024-03-02 09:20 | MM_ITS ---
WS: [id number] BILATERAL SCREENING DIGITAL TOMOSYNTHESIS MAMMOGRAM WITH CAD HISTORY: SCREENING COMPARISON: 02/18/2023, 02/17/2022 Bilateral CC and MLO views with tomosynthesis and synthetic mammography submitted. Computer aided det ection analyzed. Breast composition: The breasts are almost entirely fatty. No suspicious masses, microcalcifications or architectural distortion. Scattered round benign and vascular calcifications within each breast. MM/MM scr BI tomosynthesis [id number] IMPRESSION: BI-RADS: 2 - Benign. FOLLOW UP: 1 Year Follow-up
== END 2024-03-02 09:21 | disposition home or self-care (01) ==
LOC: MOBLMAM 09:37
PROVIDERS: PCP Nurse Practitioner Family; Visit Provider Nurse Practitioner Family
DX: Z12.31 Encounter for screening mammogram for malignant neoplasm of breast (principal); R92.313 Mammographic fatty tissue density, bilateral breasts; R92.1 Mammographic calcification found on diagnostic imaging of breast
CPT/HCPCS: 77063; 77067

== ENCOUNTER → 2024-03-08 10:53 | Outpatient (BNVA) | payer MEDICARE, SELFPAY | PROVIDERS: PCP Nurse Practitioner Family; Visit Provider Nurse Practitioner Family | DX: N18.30 Chronic kidney disease, stage 3 unspecified (principal); E11.65 Type 2 diabetes mellitus with hyperglycemia | CPT/HCPCS: 80069; 82306; 82310; 82570; 83036; 83970; 84156; 85025 ==

== ENCOUNTER → 2024-03-14 09:32 | Outpatient (BNVA) | payer MEDICARE, SELFPAY | PROVIDERS: PCP Nurse Practitioner Family; Visit Provider Nurse Practitioner Family | DX: E11.65 Type 2 diabetes mellitus with hyperglycemia (principal) | CPT/HCPCS: 80048 ==

== ENCOUNTER → 2024-03-22 09:18 | Outpatient (BNVA) | payer MEDICARE, SELFPAY | PROVIDERS: Family Provider Nurse Practitioner Family; PCP Nurse Practitioner Family; Visit Provider Nurse Practitioner Family | DX: N18.30 Chronic kidney disease, stage 3 unspecified (principal) | CPT/HCPCS: 80048 ==

== ENCOUNTER → 2024-04-08 11:07 | Outpatient (BNVA) | payer MEDICARE, SELFPAY | PROVIDERS: Family Provider Nurse Practitioner Family; PCP Nurse Practitioner Family; Visit Provider Nurse Practitioner Family | DX: N18.30 Chronic kidney disease, stage 3 unspecified (principal) | CPT/HCPCS: 80048 ==

== ENCOUNTER → 2024-05-26 09:38 | Outpatient (BNVA) | payer MEDICARE, SELFPAY | PROVIDERS: Family Provider Nurse Practitioner Family; PCP Nurse Practitioner Family; Visit Provider Nurse Practitioner Family | DX: N39.0 Urinary tract infection, site not specified (principal); R39.9 Unspecified symptoms and signs involving the genitourinary system | CPT/HCPCS: 81000; 81003 ==

== ENCOUNTER → 2024-06-09 08:53 | Outpatient (BNVA) | payer MEDICARE, SELFPAY | PROVIDERS: Family Provider Nurse Practitioner Family; PCP Nurse Practitioner Family; Visit Provider Nurse Practitioner Family | DX: E11.65 Type 2 diabetes mellitus with hyperglycemia (principal); I10 Essential (primary) hypertension; I70.0 Atherosclerosis of aorta | CPT/HCPCS: 71046; 80053; 80061; 82607; 83036; 85025 ==

== ENCOUNTER 2024-07-10 05:00 | Outpatient (RCR) | payer MEDICARE, SELFPAY | END 2024-08-08 23:59 | disposition home or self-care (01) | LOC: TPT 05:00 | PROVIDERS: Visit Provider Nurse Practitioner Family | DX: M25.511 Pain in right shoulder (principal) | CPT/HCPCS: 97161 ==

== ENCOUNTER 2024-08-09 05:00 | Outpatient (RCR) | payer MEDICARE, SELFPAY | END 2024-09-08 23:59 | disposition home or self-care (01) | LOC: TPT 05:00 | PROVIDERS: Visit Provider Nurse Practitioner Family | DX: M25.511 Pain in right shoulder (principal) | CPT/HCPCS: 97110; 97140 ==

== ENCOUNTER → 2024-08-22 13:56 | Outpatient (BNVA) | payer MEDICARE, SELFPAY | PROVIDERS: PCP Nurse Practitioner Family; Visit Provider Nurse Practitioner Family | DX: N18.30 Chronic kidney disease, stage 3 unspecified (principal) | CPT/HCPCS: 80069 ==

== ENCOUNTER → 2024-09-08 09:54 | Outpatient (BNVA) | payer MEDICARE, SELFPAY | PROVIDERS: PCP Nurse Practitioner Family; Visit Provider Nurse Practitioner Family | DX: N18.30 Chronic kidney disease, stage 3 unspecified (principal); E53.8 Deficiency of other specified B group vitamins; E11.65 Type 2 diabetes mellitus with hyperglycemia | CPT/HCPCS: 80053; 80061; 80069; 82306; 82607; 83036; 85025 ==

== ENCOUNTER → 2024-09-22 12:22 | Outpatient (BNVA) | payer OTHER, SELFPAY | PROVIDERS: PCP Nurse Practitioner Family; Referring Provider Nurse Practitioner Family; Visit Provider Internal Medicine | DX: R07.9 Chest pain, unspecified (principal) | CPT/HCPCS: 93005; 99204 ==

== ENCOUNTER → 2024-09-23 08:13 | Outpatient (BNVA) | payer OTHER, SELFPAY | PROVIDERS: PCP Nurse Practitioner Family; Visit Provider Nurse Practitioner Family | DX: I10 Essential (primary) hypertension (principal); I20.0 Unstable angina; R58 Hemorrhage, not elsewhere classified; N18.30 Chronic kidney disease, stage 3 unspecified | CPT/HCPCS: 80048; 80069; 85025; 85610 ==

== ENCOUNTER 2024-09-30 | Outpatient (CLI) | payer MEDICARE, SELFPAY ==
[2024-09-30 05:39] LABS: Hematocrit 36.0 % (36-47); Hemoglobin 11.80 g/dL (11.27-16.99); Mean Corpuscular HGB Conc 32.8 g/dL (30-55); Mean Corpuscular Hemoglobin 28.1 pg (27-33); Mean Corpuscular Volume 85.7 fl (85-98); Nucleated Red Blood Cells % 0 %; Platelet Count 178 10^3/cmm (157-399); Red Blood Count 4.20 10^6/uL (3.85-5.65); White Blood Count 5.55 10^3/uL (3.29-11.43)
[2024-09-30 06:09] LABS: Anion Gap 15.6 (5-19); Blood Urea Nitrogen 25 mg/dL (8-23); Calcium 9.2 mg/dL (8.5-10.5); Carbon Dioxide 25 mmol/L (22-29); Chloride 103 mmol/L (98-107); Creatinine Clr Calc Pharmacy 27.9447; Glucose 175 mg/dL (65-115); Osmolality Calculated 297 mOsm/kg (285-295); Potassium 4.6 mmol/L (3.5-5.1); Sodium 139 mmol/L (136-145)
--- NOTE | 2024-09-30 07:30 | PM.HP ---
Providers/Chief Complaint Admitting Physician: Nick Bardales MD/ Cardiology Primary Care Provider: MAGNO Davis Chief Complaint: I20.0 History of Present Illness Linette Jhaveri is a 74 year old female who has been having worsening chest pain symptoms. Plan for coronary angiogram. Preadmitted for hydration as has CKD. Review of Systems General: Reports: 10 or more systems reviewed and unremarkable except in HPI and below Card: Reports: chest pain, swelling of feet/ankles, dyspnea on exertion and other (dizzy); Denies: palpitations, irregular heart rhythm, lightheadedness, pre-syncope, orthopnea or leg pain with exertion Resp: Denies: dyspnea, productive cough or non-productive cough Musc: Reports: extremity swelling and other (numbness in left arm and right thigh); Denies: extremity pain Medications/Allergies Home Medications ?Medication ?Instructions ?Recorded ?Confirmed ?Last Taken ?Type gabapentin 600 mg tablet 600 mg PO BID 09/20/19 09/29/24 09/29/24 17:00 History aspirin 81 mg tablet,delayed 81 mg PO DAILY 09/24/20 09/29/24 09/29/24 06:40 History release lisinopril 20 mg tablet 20 mg PO DAILY #100 tabs 03/14/24 09/29/24 09/29/24 Rx amlodipine 10 mg tablet See Rx Instructions .Route 03/15/24 09/29/24 09/29/24 17:00 Rx .COMPLEX #100 tabs metoprolol tartrate 25 mg tablet 25 mg PO BID #200 tabs 03/15/24 09/29/24 09/29/24 17:00 Rx omeprazole 20 mg capsule,delayed 20 mg PO DAILY #100 caps 03/15/24 09/29/24 09/29/24 06:40 Rx release cyanocobalamin (vitamin B-12) See Rx Instructions .Route 08/31/24 09/22/24 Unknown Rx 1,000 mcg/mL injection solution .COMPLEX #1 mL dapagliflozin propanediol 10 mg See Rx Instructions .Route 09/09/24 09/29/24 09/29/24 06:40 Rx tablet (Farxiga) .COMPLEX #30 tabs allopurinol 100 mg tablet 100 mg PO DAILY 09/22/24 09/29/24 09/29/24 17:00 History furosemide 20 mg tablet (Lasix) 20 mg PO DAILY 09/22/24 09/29/24 09/29/24 History rosuvastatin 10 mg tablet 10 mg PO DAILY 09/22/24 09/29/24 09/29/24 06:40 History Allergies Allergy/AdvReac Type Severity Reaction Status Date / Time No Known Allergies Allergy Verified 09/22/24 12:18 PFSH Acute PFSH: Medical History (Updated 09/22/24 @ 13:19 by Nick Bardales M.D) Enrolled in chronic care management Well woman exam with routine gynecological exam Endometrial adenocarcinoma HLD (hyperlipidemia) Stage 3 chronic kidney disease Type 2 diabetes mellitus Surgical History S/P tubal ligation 1978 S/P cholecystectomy 1981 H/O section 1975, 1978 H/O lumpectomy 1994 2000 H/O: hysterectomy 08/27/17 due to cancer Family History Mother Diabetes Hypertension Father Diabetes Heart block Hypertension Brother Diabetes Denies family history of Clotting disorder Anesthesia complication Bleeding disorder Stroke Social History Smoking and tobacco/nicotine status: never used tobacco/nicotine Second hand smoke exposure: No Alcohol intake: never Substance/Drug Use: never Adopted: No Caregiver/support person: No Lives independently: Yes Household members: none Housing: House Marital status: / service: No Current occupational status: retired Do you think of yourself as: Straight/Heterosexual Current gender identity: Female Physical Exam Narrative: GENERAL: Patient is alert, awake and oriented x3. [] NECK: No jugular vein distension. [] HEENT: No cyanosis. No icterus. No pallor. [] HEART: Regular S1 and S2. No murmur, rub or gallop. [] LUNGS: Clear to auscultate bilaterally. [] CENTRAL NERVOUS SYSTEM: Grossly nonfocal. [] EXTREMITIES: Lower extremities with no edema bilaterally. A&P Assessment and plan 1. Worsening angina: 2. HLD (hyperlipidemia): 3. HTN (hypertension): 4. Type 2 diabetes mellitus: 5. Stage 3 chronic kidney disease: Plan: We will proceed with coronary angiogram with possible PCI. Has been getting IV hydration. Risks and benefits of procedure discussed in detail. PDMP PDMP Reviewed: Not Reviewed Attestations Medical Necessity Statement*: Care expected to cross 2 midnights. Coding Level of Care Code Acute Code for Chg Fwd Diagnoses Worsening angina I20.0 HLD (hyperlipidemia) E78.5 HTN (hypertension) I10 Type 2 diabetes mellitus E11.9 Stage 3 chronic kidney disease N18.30
--- NOTE | 2024-09-30 07:32 | W.PM.OPSUD ---
Surgery/Procedure H&P Update DATE OF PROCEDURE: September 30, 2024 DATE H&P PERFORMED: 09/30/24 H&P UPDATE INFORMATION: I have reviewed H&P completed within last 30 days, I have examined patient prior to procedure and No changes to prior documentation PREOP DIAGNOSIS: Worsening angina PRIMARY INDICATION FOR PROCEDURE: Worsening angina PLANNED PROCEDURE: Operation Date: 09/30/24 07:00 Proposed Procedures p Cardiac Catheterization - [facility] w/wo LV & Coros(Left) - Nick Bardales M.D Possible percutaneous coronary intervention PATIENT REASSESSED PRIOR TO SEDATION, WITH NO CHANGE NOTED: Yes PHYSICAL EXAM: alert, oriented x 3, clear to auscultation bilaterally and regular rate & rhythm AIRWAY EVAL/ANESTHESIA PLAN: normal airway, ASA III, Local Anesthesia, Risks, benefits & alternatives of sedation and/or procedure discussed and Patient agrees to continue as planned ADDITIONAL INFORMATION: Moderate sedation
--- NOTE | 2024-09-30 08:34 | USCV_ITS ---
Linette Jhaveri Age: 74 Gender: F : 1950 Exam Date: 09/30/2024 11:02 Ordering Phys: Nick Bardales M.D ([email or web address]) Technologist: URI Exam Location: [facility] [place] Indication: CP BP: 125 / 77 HR: 70 Rhythm: Sinus Technical Quality: Adequate MEASUREMENTS (Male / Female) Normal Values 2D ECHO LV Diastolic Diameter PLAX 3.3 cm 4.2 - 5.9 / 3.9 - 5.3 cm IVS Diastolic Thickness 0.9 cm 0.6 - 1.0 / 0.6 - 0.9 cm IVS Systolic Thickness 1.8 cm LVPW Diastolic Thickness 1.7 cm 0.6 - 1.0 / 0.6 - 0.9 cm LVPW Systolic Thickness 1.1 cm LVOT Diameter 2.0 cm LV Ejection Fraction 2D Teich 51.4 % LV Ejection Fraction MOD 4C 55.5 % LV Ejection Fraction MOD 2C 57.2 % LV Ejection Fraction 2C AL 60.2 % LA Diameter 3.0 cm RA Systolic Volume 4C AL 38.1 ml RA Systolic Volume 4C MOD 36.7 ml LA Sys Volume AL 53.3 cm cubed LA Sys Volume Index AL 27.3 cm cubed/m squared Aorta at Sinotubular Diameter 2.7 cm M-MODE LA Ao Ratio MM 1.3 AV Cusp Separation MM 1.7 cm DOPPLER AV Peak Velocity 166.0 cm/s LVOT Peak Velocity 129.0 cm/s AV Area Cont Eq vti 2.7 cm squared AV Area Cont Eq pk 2.5 cm squared MV Peak Velocity 143.0 cm/s MV Area PHT 3.2 cm squared Mitral E to A Ratio 0.5 TR Peak Velocity 117.0 cm/s TR Peak Gradient 5.5 mmHg TV Peak E Velocity 63.0 cm/s PV Peak Velocity 98.0 cm/s FINDINGS Left Ventricle Left ventricle is normal in size. LV systolic function normal with EF of 55-60%. No regional wall motion abnormalities. Grade 1 diastolic dysfunction. Right Ventricle Normal right ventricular size and systolic function. Right Atrium Normal right atrial size. Left Atrium Normal left atrial size. Mitral Valve Moderate mitral annular calcification. Trace mitral regurgitation. Aortic Valve Aortic valve is thickened. No significant stenosis or regurgitation. Tricuspid Valve Insufficient TR jet to calculate RVSP Pulmonic Valve Not well visualized Pericardium Normal Aorta Normal in size IVC Not well visualized CONCLUSIONS LV systolic function was normal with EF of 55-60%. Grade 1 diastolic dysfunction. Trace mitral regurgitation. Compared to prior echocardiogram from 2019, no significant changes are seen Nick Bardales MD (Electronically Signed) Final Date: 03 October 2024 12:00 S
[2024-09-30 08:45] VITALS: PULSE 75
[2024-09-30 12:17] VITALS: BP 126/82; PULSE 71; RESP 22; TEMP 36.4
[2024-09-30 14:00] VITALS: PULSE 80
--- NOTE | 2024-09-30 14:13 | P.DS_ITS ---
<Statement entered by Nick Bardales M.D - 10/02/24 12:05> Patient was cared for in conjunction with an advanced practice practitioner.? I reviewed the chart and all pertinent data including imaging, telemetry, and laboratory results.? I discussed the patient in detail with the advanced practice practitioner.? Please see?their note for discharge summary, testing results and agreed upon plan of care for the patient. Discharge Providers Date of Admission: 09/29/2024 Date of Discharge: September 30, 2024 Attending Provider at Admission: Nick Bardales M.D Attending Provider at Discharge: Nick Bardales M.D Primary Care Provider: MAGNO Davis Diagnoses at Discharge Discharge Diagnosis 1. Worsening angina: 2. Hyperlipidemia, unspecified hyperlipidemia type: 3. HTN (hypertension): 4. Type 2 diabetes mellitus with hyperglycemia, without long-term current use of insulin: 5. Stage 3 chronic kidney disease, unspecified whether stage 3a or 3b CKD: Reason for Visit Reason for Visit: I20.0 Brief History: Linette Jhaveri is a 74 year old female who has been having worsening chest pain symptoms. Plan for coronary angiogram. Preadmitted for hydration as has CKD. Hospital Course Hospital Course She was admitted to the hospital last night for IV hydration due to CKD, creatinine this morning was down to 1.8 from 1.9 on 09/23/2024. She underwent coronary angiogram this morning revealing calcified distal left main stenosis 50%, heavily calcified 70% proximal circumflex stenosis, heavily calcified critical mid LAD stenosis. She will be referred for CABG evaluation as an out patient. Dr. Nelson has been contacted and images sent via [employer]. No complications with right radial cath site. Blood sugar was elevated this afternoon and she received low-dose corrective insulin sliding scale. Echocardiogram obtained, pending read. She will be discharged home this afternoon, follow-up arranged in the cardiology clinic in 7 to 10 days. Continue metoprolol tartrate, lisinopril, rosuvastatin, Lasix, aspirin, amlodipine. Physical Exam Const: COMMON NORMALS: no acute distress and patient oriented x3 GENERAL APPEARANCE: cooperative ORIENTATION/CONSCIOUSNESS: Yes awake, Yes oriented to person, Yes oriented to place and Yes oriented to time Chest: COMMONS NORMALS: normal inspection of the chest and normal palpation of entire chest wall CHEST: Yes Symmetrical chest wall rise Resp: COMMON NORMALS: normal respiratory effort, No retractions, No use of accessory muscles and clear to auscultation bilaterally AUSCULTATION: clear to auscultation bilaterally Cardio: COMMON NORMALS: regular rate, regular rhythm, S1 normal heart sound present, S2 normal heart sound present, No gallops present (Cardio), No clicks present (Cardio), No murmurs present (Cardio) and No rub (Cardio) RATE: regular rate RHYTHM: regular rhythm HEART SOUNDS: S1 normal heart sound present and S2 normal heart sound present PERIPHERAL PULSES: radial pulses present positive right 2+ and femoral pulses present positive right 2+ Neuro: COMMON NORMALS: patient oriented x3 and moves all extremities SENSORIUM/ORIENTATION: Yes oriented to person, Yes oriented to place and Yes oriented to time Skin: WOUNDS: Yes surgical site (no hematoma palpable) Details: no odor Discharge Data Studies Completed and Pending Pending at discharge Category Date Time Status CV. echo complete* [id number] Routine Ultrasound 09/30/24 08:34 Taken Vitals Last Vital Signs Temp 97.6 F 09/30/24 12:17 Pulse 71 09/30/24 12:17 Resp 22 H 09/30/24 12:17 BP 126/82 09/30/24 12:17 Discharge Plan Discharge Patient Disposition: Home Prescriptions: Continued gabapentin 600 mg tablet 600 mg PO BID lisinopril 20 mg tablet 20 mg PO DAILY Qty: 100 3RF allopurinol 100 mg tablet 100 mg PO DAILY furosemide [Lasix] 20 mg tablet 20 mg PO DAILY rosuvastatin 10 mg tablet 10 mg PO DAILY omeprazole 20 mg capsule,delayed release(DR/EC) 20 mg PO DAILY Qty: 100 3RF metoprolol tartrate 25 mg tablet 25 mg PO BID Qty: 200 3RF amlodipine 10 mg tablet See Rx Instructions .ROUTE .COMPLEX Qty: 100 3RF Dose Instruction: TAKE 1 TABLET BY MOUTH DAILY Rx Instructions: TAKE 1 TABLET BY MOUTH DAILY cyanocobalamin (vitamin B-12) 1,000 mcg/mL solution See Rx Instructions .ROUTE .COMPLEX Qty: 1 2RF Dose Instruction: INJECT 1ML INTRAMUSCULARLY MONTHLY Rx Instructions: INJECT 1ML INTRAMUSCULARLY MONTHLY dapagliflozin propanediol [Farxiga] 10 mg tablet See Rx Instructions .ROUTE .COMPLEX Qty: 30 5RF Dose Instruction: TAKE ONE TABLET BY MOUTH DAILY Rx Instructions: TAKE ONE TABLET BY MOUTH DAILY aspirin 81 mg Tablet,Delayed Release (Dr/Ec) 81 mg PO DAILY Referrals: Shandra Barreto FNP [Primary Care Provider, Family Practice] - 10/11/24 12:00 pm Lc Mcallister MD [Physician, Cardiology] - 10/19/24 3:00 pm Diet: Advance as tolerated, Cardiac and Diabetic Activity: Increase activity as tolerated Patient Instructions: Heart Catheterization (DC), After Radial Heart Catheterization (GEN) Activity Restrictions/Additional Instructions: No lifting over 5 pounds with the right arm for the next 4 days. We will refer you to Dr. Nelson, at [facility] in [place] for coronary artery bypass grafting evaluation. You should hear from Dr Nelson's office directly for an appointment. Your records and images have been sent to them directly. Print Language: Maltese Discharge Attestations Time Spent in Discharge Care*: less than 30 min Quality Metrics Clinical Quality Measures [ No reported AMI, CVA or VTE this stay] Coding Level of Care Code Acute Code for Chg Fwd Diagnoses Worsening angina I20.0 Hyperlipidemia, unspecified hyperlipidemia type E78.5 Hyperlipidemia type: unspecified HTN (hypertension) I10 Hypertension type: unspecified Type 2 diabetes mellitus with hyperglycemia, without long-term current use of insulin E11.65 Diabetes mellitus tank terminal gauger insulin use: without prison use Diabetes mellitus complication status: with hyperglycemia Stage 3 chronic kidney disease, unspecified whether stage 3a or 3b CKD N18.30 Chronic kidney disease stage 3 subtype: unspecified whether 3a or 3b
--- NOTE | 2024-09-30 17:13 | PC.NURSE ---
Discharge Note Patient discharged to home via private vehicle accompanied by daughter. IV removed,cath tip intact. Discharge instructions reviewed with patient and/or sales representatives. Mobile pharmacy medications and/or prescriptions provided. Belongings/home medications returned.
== END 2024-09-30 16:48 | disposition home or self-care (01) ==
LOC: CCL 10:54 → CSU 10:54
PROVIDERS: PCP Nurse Practitioner Family; Visit Provider Internal Medicine
DX: I25.119 Atherosclerotic heart disease of native coronary artery with unspecified angina pectoris (principal); E78.5 Hyperlipidemia, unspecified; I12.9 Hypertensive chronic kidney disease with stage 1 through stage 4 chronic kidney disease, or unspecified chronic kidney disease; E11.22 Type 2 diabetes mellitus with diabetic chronic kidney disease; N18.30 Chronic kidney disease, stage 3 unspecified; C54.1 Malignant neoplasm of endometrium; Z82.49 Family history of ischemic heart disease and other diseases of the circulatory system; K21.9 Gastro-esophageal reflux disease without esophagitis; Z79.82 Long term (current) use of aspirin
CPT/HCPCS: 36415; 36416; 80048; 82962; 85025; 93306; 93458; 96372; 99152; 99153; C1769; C1887; C1894; J1815; J7030; J9999; Q9967

== ENCOUNTER → 2024-11-01 14:28 | Outpatient (BNVA) | payer MEDICARE, SELFPAY | PROVIDERS: PCP Nurse Practitioner Family; Visit Provider Nurse Practitioner Family | DX: N18.30 Chronic kidney disease, stage 3 unspecified (principal) | CPT/HCPCS: 80048; 80069; 82570; 84156; 85007; 85027 ==

== ENCOUNTER → 2024-11-22 08:36 | Outpatient (BNVA) | payer MEDICARE, SELFPAY | PROVIDERS: PCP Nurse Practitioner Family; Visit Provider Nurse Practitioner Family | DX: I25.10 Atherosclerotic heart disease of native coronary artery without angina pectoris (principal) | CPT/HCPCS: 80048 ==

== ENCOUNTER → 2024-11-28 10:18 | Outpatient (BNVA) | payer MEDICARE, SELFPAY | PROVIDERS: PCP Nurse Practitioner Family; Visit Provider Nurse Practitioner Family | DX: E11.22 Type 2 diabetes mellitus with diabetic chronic kidney disease (principal); I12.9 Hypertensive chronic kidney disease with stage 1 through stage 4 chronic kidney disease, or unspecified chronic kidney disease; N18.30 Chronic kidney disease, stage 3 unspecified; N28.9 Disorder of kidney and ureter, unspecified | CPT/HCPCS: 80069; 85025 ==

== ENCOUNTER → 2024-11-29 13:35 | Outpatient (BNVA) | payer MEDICARE, SELFPAY | PROVIDERS: PCP Nurse Practitioner Family; Visit Provider Nurse Practitioner Family | DX: E11.22 Type 2 diabetes mellitus with diabetic chronic kidney disease (principal); I12.9 Hypertensive chronic kidney disease with stage 1 through stage 4 chronic kidney disease, or unspecified chronic kidney disease; N18.30 Chronic kidney disease, stage 3 unspecified | CPT/HCPCS: 82570; 84156 ==

== ENCOUNTER → 2024-12-08 08:50 | Outpatient (BNVA) | payer MEDICARE, SELFPAY | PROVIDERS: PCP Nurse Practitioner Family; Visit Provider Nurse Practitioner Family | DX: N18.30 Chronic kidney disease, stage 3 unspecified (principal); E11.65 Type 2 diabetes mellitus with hyperglycemia | CPT/HCPCS: 80053; 80061; 82306; 82607; 83036; 84443; 85025 ==

== ENCOUNTER → 2024-12-20 09:54 | Outpatient (BNVA) | payer MEDICARE, SELFPAY | PROVIDERS: PCP Nurse Practitioner Family; Visit Provider Nurse Practitioner Family | DX: D64.9 Anemia, unspecified (principal) | CPT/HCPCS: 82270 ==

== ENCOUNTER → 2025-01-10 09:33 | Outpatient (BNVA) | payer MEDICARE, SELFPAY | PROVIDERS: PCP Nurse Practitioner Family; Visit Provider Nurse Practitioner Family | DX: D64.9 Anemia, unspecified (principal) | CPT/HCPCS: 85025 ==